=== PATIENT | male | born 1940 | race Caucasian/White ===

== ENCOUNTER 2018-06-14 15:07 | Inpatient (IN) | payer MEDICARE ==
[2018-06-14 16:25] LABS: BASO % 0.2 % (0.0-1.0); EOS % 0.1 % (0.0-3.0); HEMATOCRIT 40.2 % (42.0-52.0); HEMOGLOBIN 13.2 g/dl (13.5-17.5); IMMATURE GRANULOCYTE % 0.8 % (0-3.0); LYMPH # 0.8 10^3/uL (1.5-4.5); LYMPH % 4.9 % (24.0-44.0); MEAN CORPUSCULAR HGB CONC 32.8 g/dl (32.0-36.5); MEAN CORPUSCULAR VOLUME 91.4 fl (80.0-96.0); MONO # 0.8 10^3/uL (0.0-0.8); MONO % 4.7 % (0.0-5.0); NEUTROPHILS # 15.3 10^3/uL (1.8-7.7); NEUTROPHILS % 89.3 % (36.0-66.0); PLATELET COUNT, AUTOMATED 253 10^3/uL (150-450); RED CELL DISTRIBUTION WIDTH 13.3 % (11.5-14.5); WHITE BLOOD COUNT 17.1 10^3/uL (4.0-10.0)
[2018-06-14 16:36] LABS: INR 1.19; PARTIAL THROMBOPLASTIN TIME 28.4 SECONDS (25.4-37.6); PROTHROMBIN TIME 15.3 SECONDS (12.1-14.4)
[2018-06-14 16:44] LABS: ANION GAP 9 MEQ/L (8-16); BLOOD UREA NITROGEN 32 MG/DL (7-18); CARBON DIOXIDE LEVEL 27 MEQ/L (21-32); CHLORIDE LEVEL 104 MEQ/L (98-107); CREATININE FOR GFR 1.05 MG/DL (0.70-1.30); GLOMERULAR FILTRATION RATE > 60.0 (>42); GLUCOSE, FASTING 101 MG/DL (70-100); SODIUM LEVEL 140 MEQ/L (136-145)
[2018-06-14] MEDS: NS 1,000 ML IV (16:50)
[2018-06-14] MEDS: MORPHINE 4 MG/ML 1ML VIAL/SYRINGE (J2270) IV ×2 (16:50→20:10)
[2018-06-14] MEDS: ADACEL/BOOSTRIX VACCINE (DIPHTH/PERTUSS/ACELL/TETANUS)0.5ML SYR (90715) IM (17:05)
[2018-06-14 17:46] LABS: APPEARANCE, URINE CLEAR (CLEAR); BACTERIA, URINE AUTO NEGATIVE (NEGATIVE); BILIRUBIN, URINE AUTO NEGATIVE (NEGATIVE); BLOOD, URINE BLOOD NEGATIVE (NEGATIVE); COLOR, URINE YELLOW (YELLOW); GLUCOSE, URINE (UA) AUTO NEGATIVE (NEGATIVE); KETONE, URINE AUTO NEGATIVE (NEGATIVE); LEUKOCYTE ESTERASE, URINE AUTO NEGATIVE (NEGATIVE); MUCUS, URINE SMALL (NEGATIVE); NITRITE, URINE AUTO NEGATIVE (NEGATIVE); PROTEIN, URINE AUTO NEGATIVE (NEGATIVE); RBC, URINE AUTO 3 /HPF (0-3); SPECIFIC GRAVITY URINE AUTO 1.025 (1.002-1.035); SQUAMOUS EPITHELIAL CELL UR AU 0 /HPF (0-6); UROBILINOGEN, URINE AUTO 0.2 mg/dL (0.0-2.0); WBC, URINE AUTO 1 /HPF (0-3)
[2018-06-14] MEDS: amLODIPine 5 MG TAB PO (18:30)
[2018-06-14] MEDS: hydrALAZINE INJ 20 MG/ML VIAL IV ×2 (19:00→19:34)
[2018-06-14] MEDS ORDERED: MORPHINE 4 MG/ML 1ML VIAL/SYRINGE (J2270) As Ordered (20:07)
[2018-06-14] MEDS: NITROGLYCERIN 0.4 MG SUBL TABLET SL (20:08)
[2018-06-14] MEDS ORDERED: MORPHINE 4 MG/ML 1ML VIAL/SYRINGE (J2270) IV (20:15)
[2018-06-14] MEDS ORDERED: ASPIRIN 81 MG CHEW TABLET As Ordered (20:19)
[2018-06-14] MEDS: ASPIRIN 325 MG TAB PO (20:20)
[2018-06-14] MEDS: ceFAZolin 1GM INJ (J0690 PER 500MG) As Ordered (20:34)
[2018-06-14] MEDS: METOPROLOL TART 25 MG TABLET PO (21:00)
[2018-06-14 21:33] LABS: BASO % 0.1 % (0.0-1.0); EOS % 0.1 % (0.0-3.0); HEMATOCRIT 38.4 % (42.0-52.0); HEMOGLOBIN 12.5 g/dl (13.5-17.5); IMMATURE GRANULOCYTE % 0.4 % (0-3.0); LYMPH # 1.1 10^3/uL (1.5-4.5); LYMPH % 7.3 % (24.0-44.0); MEAN CORPUSCULAR HEMOGLOBIN 29.7 pg (27.0-33.0); MEAN CORPUSCULAR HGB CONC 32.6 g/dl (32.0-36.5); MEAN CORPUSCULAR VOLUME 91.2 fl (80.0-96.0); MONO # 1.1 10^3/uL (0.0-0.8); MONO % 7.3 % (0.0-5.0); NEUTROPHILS # 12.1 10^3/uL (1.8-7.7); NEUTROPHILS % 84.8 % (36.0-66.0); PLATELET COUNT, AUTOMATED 237 10^3/uL (150-450); RED BLOOD COUNT 4.21 10^6/uL (4.30-6.10); RED CELL DISTRIBUTION WIDTH 13.4 % (11.5-14.5); WHITE BLOOD COUNT 14.3 10^3/uL (4.0-10.0)
[2018-06-14 22:00] LABS: ANION GAP 8 MEQ/L (8-16); BLOOD UREA NITROGEN 30 MG/DL (7-18); CALCIUM LEVEL 8.7 MG/DL (8.8-10.2); CARBON DIOXIDE LEVEL 25 MEQ/L (21-32); CHLORIDE LEVEL 106 MEQ/L (98-107); CPK CREATINE PHOSPHOKINASE 70 U/L (39-308); CREATININE FOR GFR 1.09 MG/DL (0.70-1.30); GLOMERULAR FILTRATION RATE > 60.0 (>42); GLUCOSE, FASTING 104 MG/DL (70-100); MAGNESIUM LEVEL 2.4 MG/DL (1.8-2.4); MB/CK RELATIVE INDEX 2.86 (< OR =4); SODIUM LEVEL 139 MEQ/L (136-145); TROPONIN I < 0.02 NG/ML (< 0.10)
[2018-06-15] MEDS: D5W/0.45% SODIUM CHLORIDE 1,000 ML IV (00:55)
[2018-06-15] MEDS: ATORVASTATIN 20 MG TAB PO ×2 (00:56→22:05)
[2018-06-15] MEDS: ENOXAPARIN 100MG/1ML SYRINGE (J1650) SC ×2 (01:11→12:18)
[2018-06-15 03:00] LABS: CPK CREATINE PHOSPHOKINASE 57 U/L (39-308); MB/CK RELATIVE INDEX 2.63 (< OR =4)
[2018-06-15 04:28] LABS: TROPONIN I 0.05 NG/ML (< 0.10)
[2018-06-15 05:29] LABS: HEMATOCRIT 35.2 % (42.0-52.0); HEMOGLOBIN 11.5 g/dl (13.5-17.5); MEAN CORPUSCULAR HEMOGLOBIN 29.5 pg (27.0-33.0); MEAN CORPUSCULAR HGB CONC 32.7 g/dl (32.0-36.5); MEAN CORPUSCULAR VOLUME 90.3 fl (80.0-96.0); PLATELET COUNT, AUTOMATED 229 10^3/uL (150-450); RED CELL DISTRIBUTION WIDTH 13.7 % (11.5-14.5); WHITE BLOOD COUNT 10.8 10^3/uL (4.0-10.0)
[2018-06-15 05:46] LABS: ANION GAP 8 MEQ/L (8-16); BLOOD UREA NITROGEN 33 MG/DL (7-18); CALCIUM LEVEL 8.4 MG/DL (8.8-10.2); CARBON DIOXIDE LEVEL 26 MEQ/L (21-32); CHLORIDE LEVEL 105 MEQ/L (98-107); CREATININE FOR GFR 1.04 MG/DL (0.70-1.30); GLOMERULAR FILTRATION RATE > 60.0 (>42); GLUCOSE, FASTING 110 MG/DL (70-100); MAGNESIUM LEVEL 2.5 MG/DL (1.8-2.4); POTASSIUM SERUM 3.9 MEQ/L (3.5-5.1); SODIUM LEVEL 139 MEQ/L (136-145)
[2018-06-15 07:15] LABS: TROPONIN I 0.08 NG/ML (< 0.10)
[2018-06-15] MEDS: METOPROLOL TART 25 MG TABLET PO ×2 (09:28→22:06)
[2018-06-15] MEDS: PANTOPRAZOLE 40MG TAB (PROTONIX) PO (12:20)
[2018-06-15] MEDS: ASPIRIN 325 MG TAB PO (12:21)
[2018-06-15] MEDS: PERCOCET 5MG/325MG TAB PO ×3 (13:31→22:06)
[2018-06-15 18:31] LABS: TROPONIN I 0.07 NG/ML (< 0.10)
[2018-06-16] MEDS: ENOXAPARIN 100MG/1ML SYRINGE (J1650) SC (00:26)
[2018-06-16 00:53] LABS: TROPONIN I 0.05 NG/ML (< 0.10)
[2018-06-16] MEDS: PERCOCET 5MG/325MG TAB PO ×2 (04:12→08:45)
[2018-06-16 05:38] LABS: HEMATOCRIT 35.5 % (42.0-52.0); HEMOGLOBIN 11.4 g/dl (13.5-17.5); MEAN CORPUSCULAR HEMOGLOBIN 29.5 pg (27.0-33.0); MEAN CORPUSCULAR HGB CONC 32.1 g/dl (32.0-36.5); MEAN CORPUSCULAR VOLUME 91.7 fl (80.0-96.0); PLATELET COUNT, AUTOMATED 202 10^3/uL (150-450); RED BLOOD COUNT 3.87 10^6/uL (4.30-6.10)
[2018-06-16 06:04] LABS: ANION GAP 4 MEQ/L (8-16); BLOOD UREA NITROGEN 29 MG/DL (7-18); CALCIUM LEVEL 8.1 MG/DL (8.8-10.2); CARBON DIOXIDE LEVEL 29 MEQ/L (21-32); CHLORIDE LEVEL 104 MEQ/L (98-107); GLOMERULAR FILTRATION RATE > 60.0 (>42); GLUCOSE, FASTING 97 MG/DL (70-100); MAGNESIUM LEVEL 2.1 MG/DL (1.8-2.4); POTASSIUM SERUM 4.2 MEQ/L (3.5-5.1); SODIUM LEVEL 137 MEQ/L (136-145); TROPONIN I 0.04 NG/ML (< 0.10)
[2018-06-16] MEDS: PRAMIPEXOLE 0.25 MG TAB PO (08:44)
[2018-06-16] MEDS: ASPIRIN 325 MG TAB PO (08:44)
[2018-06-16] MEDS: METOPROLOL TART 25 MG TABLET PO (08:45)
[2018-06-16] MEDS: PANTOPRAZOLE 40MG TAB (PROTONIX) PO (08:45)
== END 2018-06-16 09:10 | disposition short-term general hospital (02) | DRG 536 ==
LOC: M ED 15:07 → M ED INP 18:36 → M PCU 23:32
DX: S72.141A Displaced intertrochanteric fracture of right femur, initial encounter for closed fracture (principal); I20.0 Unstable angina; W18.43XA Slipping, tripping and stumbling without falling due to stepping from one level to another, initial encounter; Y92.480 Sidewalk as the place of occurrence of the external cause; I10 Essential (primary) hypertension; G20 Parkinson's disease; K57.90 Diverticulosis of intestine, part unspecified, without perforation or abscess without bleeding; N40.0 Benign prostatic hyperplasia without lower urinary tract symptoms; Z79.899 Other long term (current) drug therapy

== ENCOUNTER → 2018-06-14 | Outpatient (CLI) | payer MEDICARE | LOC: M WUC 14:11 | DX: S70.01XA Contusion of right hip, initial encounter (principal); S72.145A Nondisplaced intertrochanteric fracture of left femur, initial encounter for closed fracture; X58.XXXA Exposure to other specified factors, initial encounter; Y92.9 Unspecified place or not applicable ==

== ENCOUNTER → 2018-06-26 | Outpatient (REF) ==
[2018-06-26 10:24] LABS: HEMATOCRIT 31.9 % (42.0-52.0); HEMOGLOBIN 10.7 g/dl (13.5-17.5); MEAN CORPUSCULAR HEMOGLOBIN 30.4 pg (27.0-33.0); MEAN CORPUSCULAR HGB CONC 33.5 g/dl (32.0-36.5); MEAN CORPUSCULAR VOLUME 90.6 fl (80.0-96.0); PLATELET COUNT, AUTOMATED 417 10^3/uL (150-450); RED BLOOD COUNT 3.52 10^6/uL (4.30-6.10); RED CELL DISTRIBUTION WIDTH 14.4 % (11.5-14.5); WHITE BLOOD COUNT 14.2 10^3/uL (4.0-10.0)
[2018-06-26 10:55] LABS: ANION GAP 8 MEQ/L (8-16); BLOOD UREA NITROGEN 19 MG/DL (7-18); CALCIUM LEVEL 9.4 MG/DL (8.8-10.2); CARBON DIOXIDE LEVEL 28 MEQ/L (21-32); CHLORIDE LEVEL 100 MEQ/L (98-107); CREATININE FOR GFR 1.06 MG/DL (0.70-1.30); GLOMERULAR FILTRATION RATE > 60.0 (>42); GLUCOSE, FASTING 91 MG/DL (70-100); POTASSIUM SERUM 4.2 MEQ/L (3.5-5.1); SODIUM LEVEL 136 MEQ/L (136-145)
== END ==
DX: Z00.00 Encounter for general adult medical examination without abnormal findings (principal); I25.2 Old myocardial infarction

== ENCOUNTER 2018-06-27 16:57 | Emergency (ER) | payer MEDICARE ==
[2018-06-27 18:37] LABS: BASO # 0.1 10^3/uL (0.0-0.2); BASO % 0.3 % (0.0-1.0); EOS # 0.3 10^3/uL (0.0-0.50); HEMATOCRIT 28.7 % (42.0-52.0); HEMOGLOBIN 9.3 g/dl (13.5-17.5); LYMPH # 1.1 10^3/uL (1.5-4.5); LYMPH % 7.7 % (24.0-44.0); MEAN CORPUSCULAR HEMOGLOBIN 30.4 pg (27.0-33.0); MEAN CORPUSCULAR HGB CONC 32.4 g/dl (32.0-36.5); MEAN CORPUSCULAR VOLUME 93.8 fl (80.0-96.0); MONO # 0.8 10^3/uL (0.0-0.8); MONO % 5.9 % (0.0-5.0); NEUTROPHILS # 11.9 10^3/uL (1.8-7.7); NEUTROPHILS % 83.1 % (36.0-66.0); PLATELET COUNT, AUTOMATED 413 10^3/uL (150-450); RED BLOOD COUNT 3.06 10^6/uL (4.30-6.10); RED CELL DISTRIBUTION WIDTH 14.6 % (11.5-14.5); WHITE BLOOD COUNT 14.3 10^3/uL (4.0-10.0)
[2018-06-27 18:49] LABS: INR 1.22; PROTHROMBIN TIME 15.6 SECONDS (12.1-14.4)
[2018-06-27 18:50] LABS: PARTIAL THROMBOPLASTIN TIME 31.1 SECONDS (25.4-37.6)
[2018-06-27 19:06] LABS: ALBUMIN/GLOBULIN RATIO 1.03 (1.00-1.93); ALKALINE PHOSPHATASE 119 U/L (45-117); ALT/SGPT 36 U/L (12-78); ANION GAP 9 MEQ/L (8-16); AST/SGOT 34 U/L (7-37); BILIRUBIN,DIRECT 0.2 MG/DL (0.0-0.2); BILIRUBIN,TOTAL 0.5 MG/DL (0.2-1.0); BLOOD UREA NITROGEN 27 MG/DL (7-18); CALCIUM LEVEL 8.5 MG/DL (8.8-10.2); CARBON DIOXIDE LEVEL 28 MEQ/L (21-32); CHLORIDE LEVEL 101 MEQ/L (98-107); CPK CREATINE PHOSPHOKINASE 67 U/L (39-308); CREATININE FOR GFR 1.04 MG/DL (0.70-1.30); GLOMERULAR FILTRATION RATE > 60.0 (>42); GLUCOSE, FASTING 94 MG/DL (70-100); MB/CK RELATIVE INDEX 3.28 (< OR =4); NT-PRO BNP 462 PG/ML (<450); POTASSIUM SERUM 4.5 MEQ/L (3.5-5.1); SODIUM LEVEL 138 MEQ/L (136-145); TOTAL PROTEIN 5.9 GM/DL (6.4-8.2); TROPONIN I 0.02 NG/ML (< 0.10)
[2018-06-27] MEDS ORDERED: ISOVUE-370 76% 100ML VIAL (Q9967) As Ordered (19:42)
== END 2018-06-27 23:01 | disposition home or self-care (01) ==
LOC: M ED 16:57
DX: R55 Syncope and collapse (principal); R06.02 Shortness of breath; I10 Essential (primary) hypertension; N40.0 Benign prostatic hyperplasia without lower urinary tract symptoms
CPT/HCPCS: Q9967

== ENCOUNTER → 2018-06-27 | Outpatient (REF) ==
[2018-06-27 12:43] LABS: HEMATOCRIT 31.7 % (42.0-52.0); HEMOGLOBIN 10.3 g/dl (13.5-17.5); MEAN CORPUSCULAR HEMOGLOBIN 30.2 pg (27.0-33.0); MEAN CORPUSCULAR HGB CONC 32.5 g/dl (32.0-36.5); PLATELET COUNT, AUTOMATED 446 10^3/uL (150-450); RED BLOOD COUNT 3.41 10^6/uL (4.30-6.10); RED CELL DISTRIBUTION WIDTH 14.5 % (11.5-14.5); WHITE BLOOD COUNT 14.3 10^3/uL (4.0-10.0)
[2018-06-27 16:07] LABS: HEMATOCRIT 29.5 % (42.0-52.0); HEMOGLOBIN 9.6 g/dl (13.5-17.5); MEAN CORPUSCULAR HEMOGLOBIN 30.6 pg (27.0-33.0); MEAN CORPUSCULAR HGB CONC 32.5 g/dl (32.0-36.5); MEAN CORPUSCULAR VOLUME 93.9 fl (80.0-96.0); PLATELET COUNT, AUTOMATED 415 10^3/uL (150-450); RED BLOOD COUNT 3.14 10^6/uL (4.30-6.10); RED CELL DISTRIBUTION WIDTH 14.5 % (11.5-14.5); WHITE BLOOD COUNT 13.6 10^3/uL (4.0-10.0)
[2018-06-27 16:30] LABS: ALBUMIN/GLOBULIN RATIO 0.94 (1.00-1.93); ALKALINE PHOSPHATASE 127 U/L (45-117); ALT/SGPT 35 U/L (12-78); ANION GAP 8 MEQ/L (8-16); AST/SGOT 35 U/L (7-37); BILIRUBIN,TOTAL 0.5 MG/DL (0.2-1.0); BLOOD UREA NITROGEN 28 MG/DL (7-18); CALCIUM LEVEL 8.6 MG/DL (8.8-10.2); CARBON DIOXIDE LEVEL 29 MEQ/L (21-32); CHLORIDE LEVEL 100 MEQ/L (98-107); CPK CREATINE PHOSPHOKINASE 73 U/L (39-308); CREATININE FOR GFR 1.21 MG/DL (0.70-1.30); GLOMERULAR FILTRATION RATE > 60.0 (>42); GLUCOSE, FASTING 157 MG/DL (70-100); POTASSIUM SERUM 4.3 MEQ/L (3.5-5.1); SODIUM LEVEL 137 MEQ/L (136-145); TOTAL PROTEIN 6.2 GM/DL (6.4-8.2)
== END ==
DX: D72.829 Elevated white blood cell count, unspecified (principal)

== ENCOUNTER 2018-07-02 17:29 | Inpatient (IN) | payer MEDICARE ==
[2018-07-02 16:46] LABS: BASO % 0.3 % (0.0-1.0); EOS # 0.2 10^3/uL (0.0-0.50); EOS % 1.4 % (0.0-3.0); IMMATURE GRANULOCYTE % 0.4 % (0-3.0); LYMPH # 1.8 10^3/uL (1.5-4.5); LYMPH % 15.3 % (24.0-44.0); MEAN CORPUSCULAR HEMOGLOBIN 30.6 pg (27.0-33.0); MEAN CORPUSCULAR HGB CONC 32.3 g/dl (32.0-36.5); MEAN CORPUSCULAR VOLUME 94.8 fl (80.0-96.0); MONO # 0.7 10^3/uL (0.0-0.8); MONO % 5.5 % (0.0-5.0); NEUTROPHILS % 77.1 % (36.0-66.0); PLATELET COUNT, AUTOMATED 501 10^3/uL (150-450); RED BLOOD COUNT 3.27 10^6/uL (4.30-6.10); RED CELL DISTRIBUTION WIDTH 14.3 % (11.5-14.5); WHITE BLOOD COUNT 11.7 10^3/uL (4.0-10.0)
[2018-07-02 17:08] LABS: ALBUMIN 3.1 GM/DL (3.2-5.2); ALBUMIN/GLOBULIN RATIO 0.69 (1.00-1.93); ALKALINE PHOSPHATASE 155 U/L (45-117); ALT/SGPT 30 U/L (12-78); ANION GAP 6 MEQ/L (8-16); AST/SGOT 18 U/L (7-37); BILIRUBIN,DIRECT 0.2 MG/DL (0.0-0.2); BILIRUBIN,TOTAL 0.6 MG/DL (0.2-1.0); BLOOD UREA NITROGEN 25 MG/DL (7-18); CALCIUM LEVEL 8.6 MG/DL (8.8-10.2); CARBON DIOXIDE LEVEL 31 MEQ/L (21-32); CHLORIDE LEVEL 103 MEQ/L (98-107); CPK CREATINE PHOSPHOKINASE 37 U/L (39-308); CREATININE FOR GFR 1.09 MG/DL (0.70-1.30); GLOMERULAR FILTRATION RATE > 60.0 (>42); GLUCOSE, FASTING 141 MG/DL (70-100); MB/CK RELATIVE INDEX 4.05 (< OR =4); SODIUM LEVEL 140 MEQ/L (136-145); TOTAL PROTEIN 7.6 GM/DL (6.4-8.2); TROPONIN I < 0.02 NG/ML (< 0.10)
[2018-07-02 17:09] LABS: INR 1.25; PARTIAL THROMBOPLASTIN TIME 31.2 SECONDS (25.4-37.6); PROTHROMBIN TIME 15.9 SECONDS (12.1-14.4)
[~2018-07-02 17:29] MED LIST: ALBUTEROL SULFATE 2.5 MG/0.5 ML INH NEB SOLN As Ordered; EPINEPHrine INJ 1 MG/ML 1ML AMP As Ordered; IPRATROPIUM 0.02% SOLN 0.5MG/2.5 ML NEB As Ordered; ONDANSETRON 4MG/2ML VIAL (J2405) As Ordered; dexameTHASONE 20 MG/5 ML VIAL (J1100) As Ordered
[2018-07-02] MEDS ORDERED: zolPIDEM TARTRATE 5 MG TAB PO (18:15)
[2018-07-02] MEDS ORDERED: NITROGLYCERIN 0.4 MG SUBL TABLET SL (18:30)
[2018-07-02 18:50] LABS: NT-PRO BNP 674 PG/ML (<450)
[2018-07-02] MEDS: ALBUTEROL SULFATE 2.5 MG/0.5 ML INH NEB SOLN INH (20:00)
[2018-07-02] MEDS ORDERED: ENOXAPARIN 40 MG/0.4 ML SYRINGE (J1650) SC (21:00)
[2018-07-02] MEDS: SENOKOT S TAB PO (21:00)
[2018-07-02] MEDS: LIDOCAINE 2% 5ML JELLY UROJET TOP (22:57)
[2018-07-02] MEDS: CIPROFLOXACIN 500 MG TAB PO (22:57)
[2018-07-02] MEDS: PRAMIPEXOLE 0.25 MG TAB PO (22:57)
[2018-07-02] MEDS: ATORVASTATIN 20 MG TAB PO (22:57)
[2018-07-03] MEDS ORDERED: FUROSEMIDE 40 MG/4 ML VIAL (J1940) IV
[2018-07-03] MEDS: ALBUTEROL SULFATE 2.5 MG/0.5 ML INH NEB SOLN INH ×5 (00:46→20:38)
[2018-07-03 02:01] LABS: BILIRUBIN, URINE MANUAL OBSCURED (NEGATIVE); BLOOD URINE MANUAL POSITIVE (NEGATIVE); GLUCOSE, URINE (UA) MANUAL NEGATIVE (NEGATIVE); KETONE, URINE MANUAL OBSCURED mg/dL (NEGATIVE); LEUKOCYTE ESTERASE, URINE MAN OBSCURED (NEGATIVE); PROTEIN, URINE MANUAL 3+ mg/dL (NEGATIVE); SPECIFIC GRAVITY,URINE MANUAL 1.005 (1.002-1.035); UROBILINOGEN, URINE MANUAL OBSCURED mg/dl (NORMAL)
[2018-07-03 02:02] LABS: APPEARANCE, URINE MANUAL CLOUDY (CLEAR); COLOR, URINE MANUAL RED (YELLOW); MICROSCOPIC EXAM PERFORMED; MICROSCOPIC INDICATED? MAN YES (NO); NITRITE, URINE MANUAL OBSCURED (NEGATIVE)
[2018-07-03 02:08] LABS: RBC, URINE TNTC /hpf (0-3)
[2018-07-03 02:09] LABS: HYALINE CAST, URINE NONE SEEN /lpf (0-1); SQUAMOUS EPITHELIAL CELL URINE NONE SEEN /hpf (SMALL AMT)
[2018-07-03 02:10] LABS: AMORPHOUS SEDIMENT, URINE SMALL AMOUNT (NEGATIVE); BACTERIA, URINE NONE SEEN
[2018-07-03] MEDS: CIPROFLOXACIN 500 MG TAB PO ×2 (05:36→18:37)
[2018-07-03 06:00] LABS: ALBUMIN 2.7 GM/DL (3.2-5.2); ANION GAP 5 MEQ/L (8-16); BLOOD UREA NITROGEN 25 MG/DL (7-18); CALCIUM LEVEL 8.4 MG/DL (8.8-10.2); CARBON DIOXIDE LEVEL 30 MEQ/L (21-32); CHLORIDE LEVEL 105 MEQ/L (98-107); CREATININE FOR GFR 0.94 MG/DL (0.70-1.30); GLOMERULAR FILTRATION RATE > 60.0 (>42); GLUCOSE, FASTING 96 MG/DL (70-100); PHOSPHORUS LEVEL 3.4 MG/DL (2.5-4.9); POTASSIUM SERUM 3.8 MEQ/L (3.5-5.1); SODIUM LEVEL 140 MEQ/L (136-145)
[2018-07-03] MEDS ORDERED: CLOPIDOGREL 75 MG TAB PO (09:00)
[2018-07-03] MEDS ORDERED: ASPIRIN 81 MG ENTERIC TAB PO (09:00)
[2018-07-03] MEDS: SENOKOT S TAB PO ×2 (09:26→20:59)
[2018-07-03] MEDS: MIRALAX *UNIT DOSE* 17GM PACKET PO (09:26)
[2018-07-03] MEDS: PRAMIPEXOLE 0.25 MG TAB PO ×3 (09:30→20:58)
[2018-07-03] MEDS: TAMSULOSIN 0.4 MG CAP PO (09:30)
[2018-07-03] MEDS: ceFAZolin 2 GM/D5W 50 ML IV BAG (J0690 PER 500MG) As Ordered (16:05)
[2018-07-03] MEDS: LIDOCAINE 1% SDV INJ 30 ML VIAL As Ordered (16:17)
[2018-07-03] MEDS ORDERED: PROPOFOL 200 MG/20 ML VIAL As Ordered (16:31)
[2018-07-03] MEDS ORDERED: ePHEDrine SULFATE 25 MG/5 ML(5MG/ML) SYRINGE As Ordered (16:31)
[2018-07-03] MEDS ORDERED: fentaNYL 100 MCG/2 ML INJECTION (J3010) As Ordered (16:31)
[2018-07-03] MEDS ORDERED: LIDOCAINE 2% INJ 100 MG/5 ML SDV (FOR ANES.) As Ordered (16:31)
[2018-07-03] MEDS ORDERED: ONDANSETRON 4MG/2ML VIAL (J2405) As Ordered (16:31)
[2018-07-03] MEDS ORDERED: MIDAZOLAM INJ 2 MG/2 ML VIAL (J2250) As Ordered (16:31)
[2018-07-03] MEDS: BACITRACIN PWD 50,000 UNITS VIAL As Ordered (16:34)
[2018-07-03] MEDS: AMIODARONE 150MG/3ML INJ (J0282) As Ordered (16:58)
[2018-07-03] MEDS: ISOVUE-300 61% 50ML VIAL (Q9967) As Ordered (16:58)
[2018-07-03] MEDS: LR 1,000 ML IV (17:45)
[2018-07-03] MEDS: FUROSEMIDE 40 MG/4 ML VIAL (J1940) IV ×2 (18:37→23:44)
[2018-07-03] MEDS: traMADol 50 MG TAB PO ×2 (19:01→20:59)
[2018-07-03] MEDS: ATORVASTATIN 20 MG TAB PO (20:59)
[2018-07-03] MEDS: ACETAMINOPHEN TAB 650MG DOSE (2X325MG) PO (23:39)
[2018-07-03] MEDS: ceFAZolin SOD 1 GM in D5W MINI-BAG PLUS 50 ML IV (23:44)
[2018-07-04] MEDS: ALBUTEROL SULFATE 2.5 MG/0.5 ML INH NEB SOLN INH ×6 (04:00→20:00)
[2018-07-04] MEDS: ACETAMINOPHEN TAB 650MG DOSE (2X325MG) PO ×4 (04:09→20:07)
[2018-07-04] MEDS: CIPROFLOXACIN 500 MG TAB PO ×2 (05:38→18:11)
[2018-07-04] MEDS: FUROSEMIDE 40 MG/4 ML VIAL (J1940) IV ×3 (05:38→18:13)
[2018-07-04 06:44] LABS: ALBUMIN 2.7 GM/DL (3.2-5.2); ANION GAP 7 MEQ/L (8-16); BLOOD UREA NITROGEN 22 MG/DL (7-18); CALCIUM LEVEL 8.3 MG/DL (8.8-10.2); CARBON DIOXIDE LEVEL 31 MEQ/L (21-32); CHLORIDE LEVEL 99 MEQ/L (98-107); CREATININE FOR GFR 1.34 MG/DL (0.70-1.30); GLUCOSE, FASTING 95 MG/DL (70-100); PHOSPHORUS LEVEL 4.6 MG/DL (2.5-4.9); POTASSIUM SERUM 3.8 MEQ/L (3.5-5.1); SODIUM LEVEL 137 MEQ/L (136-145)
[2018-07-04] MEDS: ceFAZolin SOD 1 GM in D5W MINI-BAG PLUS 50 ML IV ×2 (08:53→16:10)
[2018-07-04] MEDS: PRAMIPEXOLE 0.25 MG TAB PO ×3 (08:53→20:06)
[2018-07-04] MEDS: TAMSULOSIN 0.4 MG CAP PO (08:53)
[2018-07-04] MEDS: SENOKOT S TAB PO ×2 (09:00→20:07)
[2018-07-04] MEDS: MIRALAX *UNIT DOSE* 17GM PACKET PO (09:00)
[2018-07-04] MEDS: ATORVASTATIN 20 MG TAB PO (20:06)
[2018-07-05] MEDS: ACETAMINOPHEN TAB 650MG DOSE (2X325MG) PO ×2 (00:11→05:30)
[2018-07-05] MEDS: FUROSEMIDE 40 MG/4 ML VIAL (J1940) IV ×2 (05:31)
[2018-07-05] MEDS: CIPROFLOXACIN 500 MG TAB PO (05:31)
[2018-07-05 05:56] LABS: HEMATOCRIT 25.4 % (42.0-52.0); HEMOGLOBIN 8.4 g/dl (13.5-17.5); MEAN CORPUSCULAR HEMOGLOBIN 30.4 pg (27.0-33.0); MEAN CORPUSCULAR HGB CONC 33.1 g/dl (32.0-36.5); PLATELET COUNT, AUTOMATED 384 10^3/uL (150-450); RED BLOOD COUNT 2.76 10^6/uL (4.30-6.10); RED CELL DISTRIBUTION WIDTH 14.4 % (11.5-14.5)
[2018-07-05 06:34] LABS: ALBUMIN 2.6 GM/DL (3.2-5.2); ANION GAP 7 MEQ/L (8-16); BLOOD UREA NITROGEN 29 MG/DL (7-18); CALCIUM LEVEL 7.7 MG/DL (8.8-10.2); CARBON DIOXIDE LEVEL 33 MEQ/L (21-32); CHLORIDE LEVEL 96 MEQ/L (98-107); CREATININE FOR GFR 1.29 MG/DL (0.70-1.30); GLOMERULAR FILTRATION RATE 57.5 (>42); GLUCOSE, FASTING 99 MG/DL (70-100); PHOSPHORUS LEVEL 3.6 MG/DL (2.5-4.9); POTASSIUM SERUM 3.5 MEQ/L (3.5-5.1); SODIUM LEVEL 136 MEQ/L (136-145)
[2018-07-05] MEDS: ALBUTEROL SULFATE 2.5 MG/0.5 ML INH NEB SOLN INH ×2 (07:23)
[2018-07-05] MEDS: MIRALAX *UNIT DOSE* 17GM PACKET PO (09:25)
[2018-07-05] MEDS: CLOPIDOGREL 75 MG TAB PO (09:26)
[2018-07-05] MEDS: TAMSULOSIN 0.4 MG CAP PO (09:26)
[2018-07-05] MEDS: PRAMIPEXOLE 0.25 MG TAB PO (09:26)
[2018-07-05] MEDS: ASPIRIN 81 MG ENTERIC TAB PO (09:26)
[2018-07-05] MEDS: SENOKOT S TAB PO (09:26)
== END 2018-07-05 11:29 | DRG 242 ==
LOC: M PCU 07-03 17:55 → M ED 17:29 → M ED INP 18:13 → M ICU 21:18
PROC: 0JH605Z Insertion of Pacemaker, Single Chamber Rate Responsive into Chest Subcutaneous Tissue and Fascia, Open Approach (ICD-10-PCS; principal; 2018-07-03 15:52)
PROC: 02H63MZ Insertion of Cardiac Lead into Right Atrium, Percutaneous Approach (ICD-10-PCS; 2018-07-03 15:52)
PROC: 02HK3JZ Insertion of Pacemaker Lead into Right Ventricle, Percutaneous Approach (ICD-10-PCS; 2018-07-03 15:52)
PROC: 0TJB8ZZ Inspection of Bladder, Via Natural or Artificial Opening Endoscopic (ICD-10-PCS; 2018-07-03 15:52)
DX: I49.5 Sick sinus syndrome (principal); I50.33 Acute on chronic diastolic (congestive) heart failure; G20 Parkinson's disease; I11.0 Hypertensive heart disease with heart failure; I50.9 Heart failure, unspecified; I25.10 Atherosclerotic heart disease of native coronary artery without angina pectoris; Z95.5 Presence of coronary angioplasty implant and graft; N40.1 Benign prostatic hyperplasia with lower urinary tract symptoms; D64.9 Anemia, unspecified; I35.0 Nonrheumatic aortic (valve) stenosis; I27.20 Pulmonary hypertension, unspecified; R31.9 Hematuria, unspecified; R33.9 Retention of urine, unspecified; S72.141D Displaced intertrochanteric fracture of right femur, subsequent encounter for closed fracture with routine healing; Z79.82 Long term (current) use of aspirin; Z79.899 Other long term (current) drug therapy; Z87.891 Personal history of nicotine dependence; Z79.02 Long term (current) use of antithrombotics/antiplatelets; Z79.891 Long term (current) use of opiate analgesic; W19.XXXD Unspecified fall, subsequent encounter; Y92.9 Unspecified place or not applicable

== ENCOUNTER → 2018-07-02 | Outpatient (REF) | payer MEDICARE ==
[2018-07-02 10:33] LABS: HEMOGLOBIN 9.3 g/dl (13.5-17.5); MEAN CORPUSCULAR HEMOGLOBIN 30.4 pg (27.0-33.0); MEAN CORPUSCULAR HGB CONC 32.1 g/dl (32.0-36.5); MEAN CORPUSCULAR VOLUME 94.8 fl (80.0-96.0); PLATELET COUNT, AUTOMATED 461 10^3/uL (150-450); RED BLOOD COUNT 3.06 10^6/uL (4.30-6.10); RED CELL DISTRIBUTION WIDTH 14.4 % (11.5-14.5); WHITE BLOOD COUNT 8.2 10^3/uL (4.0-10.0)
[2018-07-02 11:14] LABS: ANION GAP 7 MEQ/L (8-16); BLOOD UREA NITROGEN 24 MG/DL (7-18); CALCIUM LEVEL 8.6 MG/DL (8.8-10.2); CARBON DIOXIDE LEVEL 30 MEQ/L (21-32); CHLORIDE LEVEL 102 MEQ/L (98-107); GLOMERULAR FILTRATION RATE > 60.0 (>42); GLUCOSE, FASTING 151 MG/DL (70-100); POTASSIUM SERUM 4.2 MEQ/L (3.5-5.1); SODIUM LEVEL 139 MEQ/L (136-145)
== END ==
DX: Z96.641 Presence of right artificial hip joint (principal); Z79.899 Other long term (current) drug therapy

== ENCOUNTER 2018-07-05 23:19 | Emergency (ER) | payer MEDICARE | END 2018-07-06 04:10 | disposition home or self-care (01) | LOC: M ED 23:19 | DX: R33.9 Retention of urine, unspecified (principal); R31.9 Hematuria, unspecified; R10.30 Lower abdominal pain, unspecified; T83.028A Displacement of other urinary catheter, initial encounter; X58.XXXA Exposure to other specified factors, initial encounter; Y92.89 Other specified places as the place of occurrence of the external cause; G20 Parkinson's disease; N40.0 Benign prostatic hyperplasia without lower urinary tract symptoms; Z95.5 Presence of coronary angioplasty implant and graft; Z79.899 Other long term (current) drug therapy; Z79.82 Long term (current) use of aspirin; Z79.02 Long term (current) use of antithrombotics/antiplatelets; Z79.891 Long term (current) use of opiate analgesic ==

== ENCOUNTER 2018-07-08 11:24 | Inpatient (IN) | payer MEDICARE ==
[2018-07-08 12:07] LABS: ABG BASE EXCESS 7.5 (-2.0-2.0); ABG HCO3 31.2 MEQ/L (22.0-26.0); ABG O2 SATURATION 98.1 % (95.0-99.0); ABG PARTIAL PRESSURE CO2 40.1 mmHg (35.0-45.0); ABG PARTIAL PRESSURE O2 106.7 mmHg (75.0-100.0); ABG STANDARD HCO3 31.3 MEQ/L (22.0-26.0); ABG TOTAL CO2 32.4 MEQ/L (23.0-31.0); ABG pH (ARTERIAL) 7.509 UNITS (7.350-7.450)
[2018-07-08 12:27] LABS: BASO % 0.1 % (0.0-1.0); EOS # 0.1 10^3/uL (0.0-0.50); EOS % 0.6 % (0.0-3.0); HEMATOCRIT 17.1 % (42.0-52.0); LYMPH # 1.3 10^3/uL (1.5-4.5); LYMPH % 11.3 % (24.0-44.0); MEAN CORPUSCULAR HEMOGLOBIN 30.5 pg (27.0-33.0); MEAN CORPUSCULAR HGB CONC 33.3 g/dl (32.0-36.5); MEAN CORPUSCULAR VOLUME 91.4 fl (80.0-96.0); MONO # 1.1 10^3/uL (0.0-0.8); MONO % 9.8 % (0.0-5.0); NEUTROPHILS # 8.6 10^3/uL (1.8-7.7); NEUTROPHILS % 77.2 % (36.0-66.0); PLATELET COUNT, AUTOMATED 334 10^3/uL (150-450); RED BLOOD COUNT 1.87 10^6/uL (4.30-6.10); RED CELL DISTRIBUTION WIDTH 14.4 % (11.5-14.5); WHITE BLOOD COUNT 11.1 10^3/uL (4.0-10.0)
[2018-07-08 12:34] LABS: HEMOGLOBIN 5.7 g/dl (13.5-17.5)
[2018-07-08 12:38] LABS: INR 1.27
[2018-07-08 12:58] LABS: ALBUMIN 2.9 GM/DL (3.2-5.2); ALBUMIN/GLOBULIN RATIO 0.83 (1.00-1.93); ALKALINE PHOSPHATASE 122 U/L (45-117); ALT/SGPT 12 U/L (12-78); ANION GAP 9 MEQ/L (8-16); AST/SGOT 10 U/L (7-37); BILIRUBIN,DIRECT 0.2 MG/DL (0.0-0.2); BILIRUBIN,TOTAL 0.6 MG/DL (0.2-1.0); BLOOD UREA NITROGEN 66 MG/DL (7-18); CALCIUM LEVEL 7.8 MG/DL (8.8-10.2); CARBON DIOXIDE LEVEL 32 MEQ/L (21-32); CHLORIDE LEVEL 92 MEQ/L (98-107); CPK CREATINE PHOSPHOKINASE 27 U/L (39-308); CREATININE FOR GFR 1.39 MG/DL (0.70-1.30); GLOMERULAR FILTRATION RATE 52.7 (>42); GLUCOSE, FASTING 109 MG/DL (70-100); MB/CK RELATIVE INDEX 4.07 (< OR =4); POTASSIUM SERUM 3.8 MEQ/L (3.5-5.1); SODIUM LEVEL 133 MEQ/L (136-145); TOTAL PROTEIN 6.4 GM/DL (6.4-8.2)
[2018-07-08 12:58] LABS: LACTIC ACID SEPSIS PROTOCOL 1.4 MMOL/L (0.4-2.0)
[2018-07-08] MEDS ORDERED: ISOVUE-370 76% 100ML VIAL (Q9967) As Ordered (13:14)
[2018-07-08] MEDS ORDERED: NITROGLYCERIN 0.4 MG SUBL TABLET SL (15:15)
[2018-07-08] MEDS ORDERED: BISACODYL 10 MG SUPP PR (15:15)
[2018-07-08 15:41] LABS: APPEARANCE, URINE MANUAL TURBID (CLEAR); COLOR, URINE MANUAL RED (YELLOW); PH,URINE MAN OBSCURED UNITS (5.0 - 7.0)
[2018-07-08 15:42] LABS: BILIRUBIN, URINE MANUAL OBSCURED (NEGATIVE); BLOOD URINE MANUAL OBSCURED (NEGATIVE); GLUCOSE, URINE (UA) MANUAL OBSCURED mg/dL (NEGATIVE); KETONE, URINE MANUAL OBSCURED mg/dL (NEGATIVE); LEUKOCYTE ESTERASE, URINE MAN OBSCURED (NEGATIVE); MICROSCOPIC INDICATED? MAN YES (NO); NITRITE, URINE MANUAL OBSCURED (NEGATIVE); PROTEIN, URINE MANUAL OBSCURED mg/dL (NEGATIVE); UROBILINOGEN, URINE MANUAL OBSCURED mg/dl (NORMAL)
[2018-07-08 15:48] LABS: RBC, URINE TNTC /hpf (0-3); SQUAMOUS EPITHELIAL CELL URINE NONE SEEN /hpf (SMALL AMT); WBC, URINE TNTC /hpf (0-3)
[2018-07-08 15:49] LABS: BACTERIA, URINE MOD AMOUNT; HYALINE CAST, URINE NONE SEEN /lpf (0-1); MICROSCOPIC EXAM PERFORMED
[2018-07-08 17:26] LABS: CPK CREATINE PHOSPHOKINASE 35 U/L (39-308); MB/CK RELATIVE INDEX 5.14 (< OR =4); TROPONIN I 0.32 NG/ML (< 0.10)
[2018-07-08] MEDS: FERROUS GLUCONATE 324 MG TAB PO ×2 (17:54→20:10)
[2018-07-08] MEDS: CIPROFLOXACIN 500 MG TAB PO (17:54)
[2018-07-08] MEDS: PRAMIPEXOLE 0.25 MG TAB PO ×2 (17:54→20:09)
[2018-07-08 18:04] LABS: HEMATOCRIT 19.8 % (42.0-52.0)
[2018-07-08 18:17] LABS: HEMOGLOBIN 6.7 g/dl (13.5-17.5)
[2018-07-08] MEDS: NS 1,000 ML IV (19:00)
[2018-07-08] MEDS: TAMSULOSIN 0.4 MG CAP PO (20:09)
[2018-07-08] MEDS: ATORVASTATIN 20 MG TAB PO (20:09)
[2018-07-08] MEDS: SENOKOT S TAB PO (20:09)
[2018-07-08] MEDS: CLOPIDOGREL 75 MG TAB PO (20:10)
[2018-07-08] MEDS: ACETAMINOPHEN TAB 650MG DOSE (2X325MG) PO (23:19)
[2018-07-09 00:46] LABS: HEMATOCRIT 22.6 % (42.0-52.0); HEMOGLOBIN 7.6 g/dl (13.5-17.5)
[2018-07-09 01:39] LABS: CPK CREATINE PHOSPHOKINASE 37 U/L (39-308); MB/CK RELATIVE INDEX 5.41 (< OR =4); TROPONIN I 0.43 NG/ML (< 0.10)
[2018-07-09] MEDS: CIPROFLOXACIN 500 MG TAB PO ×2 (05:12→17:08)
[2018-07-09 06:14] LABS: HEMATOCRIT 24.6 % (42.0-52.0); HEMOGLOBIN 8.2 g/dl (13.5-17.5)
[2018-07-09 06:40] LABS: CPK CREATINE PHOSPHOKINASE 36 U/L (39-308); MB/CK RELATIVE INDEX 4.17 (< OR =4); TROPONIN I 0.35 NG/ML (< 0.10)
[2018-07-09 07:45] LABS: IMMEDIATE SPIN CROSSMATCH 1 4
[2018-07-09] MEDS: FERROUS GLUCONATE 324 MG TAB PO ×3 (08:10→20:21)
[2018-07-09] MEDS: PRAMIPEXOLE 0.25 MG TAB PO ×3 (08:11→20:21)
[2018-07-09] MEDS: VITAMIN D 1,000 INTERNATIONAL UNITS TABLET PO (08:11)
[2018-07-09] MEDS: SENOKOT S TAB PO ×2 (08:11→20:21)
[2018-07-09] MEDS ORDERED: SLF 3 ML SYR IV (10:30)
[2018-07-09 11:21] LABS: HEMATOCRIT 26.7 % (42.0-52.0); HEMOGLOBIN 9.1 g/dl (13.5-17.5)
[2018-07-09] MEDS: SLF 3 ML SYR IV ×2 (13:18→21:01)
[2018-07-09 19:12] LABS: HEMATOCRIT 27.2 % (42.0-52.0); HEMOGLOBIN 9.3 g/dl (13.5-17.5)
[2018-07-09] MEDS: MOM 30ML SUSPENSION UDC PO (20:21)
[2018-07-09] MEDS: ATORVASTATIN 20 MG TAB PO (20:21)
[2018-07-09] MEDS: TAMSULOSIN 0.4 MG CAP PO (20:21)
[2018-07-09] MEDS: CLOPIDOGREL 75 MG TAB PO (20:21)
[2018-07-10] MEDS: ACETAMINOPHEN TAB 650MG DOSE (2X325MG) PO (02:04)
[2018-07-10 04:57] LABS: HEMOGLOBIN 9.4 g/dl (13.5-17.5); MEAN CORPUSCULAR HEMOGLOBIN 30.6 pg (27.0-33.0); MEAN CORPUSCULAR HGB CONC 34.8 g/dl (32.0-36.5); MEAN CORPUSCULAR VOLUME 87.9 fl (80.0-96.0); PLATELET COUNT, AUTOMATED 271 10^3/uL (150-450); RED BLOOD COUNT 3.07 10^6/uL (4.30-6.10); RED CELL DISTRIBUTION WIDTH 15.6 % (11.5-14.5); WHITE BLOOD COUNT 9.4 10^3/uL (4.0-10.0)
[2018-07-10 05:25] LABS: ANION GAP 8 MEQ/L (8-16); BLOOD UREA NITROGEN 45 MG/DL (7-18); CALCIUM LEVEL 7.9 MG/DL (8.8-10.2); CARBON DIOXIDE LEVEL 29 MEQ/L (21-32); CHLORIDE LEVEL 100 MEQ/L (98-107); GLOMERULAR FILTRATION RATE > 60.0 (>42); GLUCOSE, FASTING 90 MG/DL (70-100); POTASSIUM SERUM 3.6 MEQ/L (3.5-5.1); SODIUM LEVEL 137 MEQ/L (136-145)
[2018-07-10] MEDS: SLF 3 ML SYR IV ×3 (05:52→21:23)
[2018-07-10] MEDS: CIPROFLOXACIN 500 MG TAB PO ×2 (05:52→16:58)
[2018-07-10] MEDS: VITAMIN D 1,000 INTERNATIONAL UNITS TABLET PO (08:11)
[2018-07-10] MEDS: FERROUS GLUCONATE 324 MG TAB PO ×3 (08:11→21:21)
[2018-07-10] MEDS: PRAMIPEXOLE 0.25 MG TAB PO ×3 (08:11→21:22)
[2018-07-10] MEDS: SENOKOT S TAB PO ×2 (08:11→21:21)
[2018-07-10 19:04] LABS: HEMATOCRIT 30.1 % (42.0-52.0); HEMOGLOBIN 10.2 g/dl (13.5-17.5)
[2018-07-10] MEDS: TAMSULOSIN 0.4 MG CAP PO (21:21)
[2018-07-10] MEDS: CLOPIDOGREL 75 MG TAB PO (21:21)
[2018-07-10] MEDS: ATORVASTATIN 20 MG TAB PO (21:22)
[2018-07-11 05:52] LABS: HEMATOCRIT 27.2 % (42.0-52.0); HEMOGLOBIN 9.1 g/dl (13.5-17.5); MEAN CORPUSCULAR HGB CONC 33.5 g/dl (32.0-36.5); MEAN CORPUSCULAR VOLUME 89.8 fl (80.0-96.0); PLATELET COUNT, AUTOMATED 276 10^3/uL (150-450); RED BLOOD COUNT 3.03 10^6/uL (4.30-6.10); RED CELL DISTRIBUTION WIDTH 15.4 % (11.5-14.5); WHITE BLOOD COUNT 10.3 10^3/uL (4.0-10.0)
[2018-07-11] MEDS: SLF 3 ML SYR IV ×3 (06:00→22:00)
[2018-07-11] MEDS: CIPROFLOXACIN 500 MG TAB PO ×2 (06:14→17:44)
[2018-07-11 06:19] LABS: ANION GAP 9 MEQ/L (8-16); BLOOD UREA NITROGEN 43 MG/DL (7-18); CALCIUM LEVEL 7.6 MG/DL (8.8-10.2); CARBON DIOXIDE LEVEL 27 MEQ/L (21-32); CHLORIDE LEVEL 103 MEQ/L (98-107); CREATININE FOR GFR 0.88 MG/DL (0.70-1.30); GLOMERULAR FILTRATION RATE > 60.0 (>42); GLUCOSE, FASTING 90 MG/DL (70-100); POTASSIUM SERUM 3.3 MEQ/L (3.5-5.1); SODIUM LEVEL 139 MEQ/L (136-145)
[2018-07-11] MEDS: FERROUS GLUCONATE 324 MG TAB PO ×3 (08:39→21:49)
[2018-07-11] MEDS: PRAMIPEXOLE 0.25 MG TAB PO ×3 (08:39→21:50)
[2018-07-11] MEDS: VITAMIN D 1,000 INTERNATIONAL UNITS TABLET PO (08:39)
[2018-07-11] MEDS: SENOKOT S TAB PO ×2 (08:39→21:50)
[2018-07-11] MEDS: POTASSIUM CHLORIDE 10 MEQ SR TABLET PO (11:45)
[2018-07-11 11:58] LABS: MAGNESIUM LEVEL 2.5 MG/DL (1.8-2.4)
[2018-07-11] MEDS: METOPROLOL SUCC *XL* 25MG TAB (TopROL *XL*) PO ×2 (15:14→21:00)
[2018-07-11 19:09] LABS: HEMATOCRIT 30.7 % (42.0-52.0); HEMOGLOBIN 10.1 g/dl (13.5-17.5)
[2018-07-11] MEDS: ATORVASTATIN 20 MG TAB PO (21:49)
[2018-07-11] MEDS: TAMSULOSIN 0.4 MG CAP PO (21:49)
[2018-07-11] MEDS: CLOPIDOGREL 75 MG TAB PO (21:50)
[2018-07-12] MEDS: CIPROFLOXACIN 500 MG TAB PO ×2 (05:54→16:52)
[2018-07-12] MEDS: SLF 3 ML SYR IV ×3 (05:55→20:23)
[2018-07-12 05:59] LABS: HEMATOCRIT 26.7 % (42.0-52.0); HEMOGLOBIN 8.8 g/dl (13.5-17.5); MEAN CORPUSCULAR VOLUME 91.1 fl (80.0-96.0); PLATELET COUNT, AUTOMATED 271 10^3/uL (150-450); RED BLOOD COUNT 2.93 10^6/uL (4.30-6.10); RED CELL DISTRIBUTION WIDTH 15.7 % (11.5-14.5); WHITE BLOOD COUNT 10.1 10^3/uL (4.0-10.0)
[2018-07-12 06:37] LABS: ANION GAP 7 MEQ/L (8-16); BLOOD UREA NITROGEN 38 MG/DL (7-18); CALCIUM LEVEL 8.2 MG/DL (8.8-10.2); CARBON DIOXIDE LEVEL 27 MEQ/L (21-32); CHLORIDE LEVEL 109 MEQ/L (98-107); CREATININE FOR GFR 0.83 MG/DL (0.70-1.30); GLOMERULAR FILTRATION RATE > 60.0 (>42); GLUCOSE, FASTING 94 MG/DL (70-100); POTASSIUM SERUM 3.8 MEQ/L (3.5-5.1); SODIUM LEVEL 143 MEQ/L (136-145)
[2018-07-12] MEDS: METOPROLOL SUCC *XL* 25MG TAB (TopROL *XL*) PO (08:48)
[2018-07-12] MEDS: FERROUS GLUCONATE 324 MG TAB PO ×3 (08:53→20:21)
[2018-07-12] MEDS: SENOKOT S TAB PO ×2 (08:53→20:21)
[2018-07-12] MEDS: PRAMIPEXOLE 0.25 MG TAB PO ×3 (08:53→23:37)
[2018-07-12] MEDS: VITAMIN D 1,000 INTERNATIONAL UNITS TABLET PO (08:53)
[2018-07-12] MEDS: POTASSIUM CHLORIDE 10 MEQ SR TABLET PO (12:21)
[2018-07-12 19:39] LABS: HEMATOCRIT 29.8 % (42.0-52.0); HEMOGLOBIN 9.6 g/dl (13.5-17.5)
[2018-07-12] MEDS: METOPROLOL SUCC *XL* 12.5MG PER 1/2 TAB (TopROL *XL*) PO (20:21)
[2018-07-12] MEDS: CLOPIDOGREL 75 MG TAB PO (20:21)
[2018-07-12] MEDS: TAMSULOSIN 0.4 MG CAP PO (20:21)
[2018-07-12] MEDS: ATORVASTATIN 20 MG TAB PO (20:21)
[2018-07-12] MEDS: ACETAMINOPHEN TAB 650MG DOSE (2X325MG) PO (23:37)
[2018-07-13] MEDS: CIPROFLOXACIN 500 MG TAB PO ×2 (05:36→18:01)
[2018-07-13] MEDS: SLF 3 ML SYR IV ×3 (05:37→22:38)
[2018-07-13 06:32] LABS: HEMOGLOBIN 8.6 g/dl (13.5-17.5); MEAN CORPUSCULAR HEMOGLOBIN 30.4 pg (27.0-33.0); MEAN CORPUSCULAR HGB CONC 33.1 g/dl (32.0-36.5); MEAN CORPUSCULAR VOLUME 91.9 fl (80.0-96.0); PLATELET COUNT, AUTOMATED 280 10^3/uL (150-450); RED BLOOD COUNT 2.83 10^6/uL (4.30-6.10); RED CELL DISTRIBUTION WIDTH 15.7 % (11.5-14.5); WHITE BLOOD COUNT 9.9 10^3/uL (4.0-10.0)
[2018-07-13 07:01] LABS: ANION GAP 7 MEQ/L (8-16); BLOOD UREA NITROGEN 33 MG/DL (7-18); CALCIUM LEVEL 7.8 MG/DL (8.8-10.2); CARBON DIOXIDE LEVEL 26 MEQ/L (21-32); CHLORIDE LEVEL 109 MEQ/L (98-107); CREATININE FOR GFR 0.82 MG/DL (0.70-1.30); GLOMERULAR FILTRATION RATE > 60.0 (>42); GLUCOSE, FASTING 101 MG/DL (70-100); POTASSIUM SERUM 3.9 MEQ/L (3.5-5.1); SODIUM LEVEL 142 MEQ/L (136-145)
[2018-07-13] MEDS: FERROUS GLUCONATE 324 MG TAB PO ×3 (08:24→20:11)
[2018-07-13] MEDS: VITAMIN D 1,000 INTERNATIONAL UNITS TABLET PO (08:27)
[2018-07-13] MEDS: PRAMIPEXOLE 0.25 MG TAB PO ×3 (08:27→20:11)
[2018-07-13] MEDS: METOPROLOL SUCC *XL* 12.5MG PER 1/2 TAB (TopROL *XL*) PO ×2 (08:27→20:11)
[2018-07-13] MEDS: SENOKOT S TAB PO ×2 (08:27→20:11)
[2018-07-13] MEDS: FUROSEMIDE 40 MG/4 ML VIAL (J1940) IV (13:17)
[2018-07-13] MEDS: TAMSULOSIN 0.4 MG CAP PO (20:11)
[2018-07-13] MEDS: ATORVASTATIN 20 MG TAB PO (20:11)
[2018-07-13] MEDS: CLOPIDOGREL 75 MG TAB PO (20:11)
[2018-07-14] MEDS: CIPROFLOXACIN 500 MG TAB PO (05:26)
[2018-07-14] MEDS: SLF 3 ML SYR IV ×3 (05:27→21:01)
[2018-07-14 05:47] LABS: HEMATOCRIT 27.7 % (42.0-52.0); HEMOGLOBIN 9.2 g/dl (13.5-17.5); MEAN CORPUSCULAR HEMOGLOBIN 30.7 pg (27.0-33.0); MEAN CORPUSCULAR HGB CONC 33.2 g/dl (32.0-36.5); MEAN CORPUSCULAR VOLUME 92.3 fl (80.0-96.0); PLATELET COUNT, AUTOMATED 269 10^3/uL (150-450); RED CELL DISTRIBUTION WIDTH 15.8 % (11.5-14.5); WHITE BLOOD COUNT 8.6 10^3/uL (4.0-10.0)
[2018-07-14 06:20] LABS: ANION GAP 7 MEQ/L (8-16); BLOOD UREA NITROGEN 32 MG/DL (7-18); CARBON DIOXIDE LEVEL 27 MEQ/L (21-32); CHLORIDE LEVEL 107 MEQ/L (98-107); GLOMERULAR FILTRATION RATE > 60.0 (>42); GLUCOSE, FASTING 89 MG/DL (70-100); NT-PRO BNP 421 PG/ML (<450); POTASSIUM SERUM 3.7 MEQ/L (3.5-5.1); SODIUM LEVEL 141 MEQ/L (136-145); TROPONIN I 0.02 NG/ML (< 0.10)
[2018-07-14] MEDS: METOPROLOL SUCC *XL* 12.5MG PER 1/2 TAB (TopROL *XL*) PO ×2 (09:00→21:00)
[2018-07-14] MEDS: PRAMIPEXOLE 0.25 MG TAB PO ×3 (09:47→21:00)
[2018-07-14] MEDS: FERROUS GLUCONATE 324 MG TAB PO ×3 (09:47→21:00)
[2018-07-14] MEDS: VITAMIN D 1,000 INTERNATIONAL UNITS TABLET PO (09:47)
[2018-07-14] MEDS: SENOKOT S TAB PO ×2 (09:47→21:00)
[2018-07-14] MEDS: FUROSEMIDE 40 MG/4 ML VIAL (J1940) IV (15:22)
[2018-07-14] MEDS: ATORVASTATIN 20 MG TAB PO (21:00)
[2018-07-14] MEDS: CLOPIDOGREL 75 MG TAB PO (21:00)
[2018-07-14] MEDS: TAMSULOSIN 0.4 MG CAP PO (21:00)
[2018-07-15] MEDS: SLF 3 ML SYR IV (05:55)
[2018-07-15 05:59] LABS: HEMATOCRIT 26.8 % (42.0-52.0); HEMOGLOBIN 8.8 g/dl (13.5-17.5); MEAN CORPUSCULAR HEMOGLOBIN 30.2 pg (27.0-33.0); MEAN CORPUSCULAR HGB CONC 32.8 g/dl (32.0-36.5); MEAN CORPUSCULAR VOLUME 92.1 fl (80.0-96.0); PLATELET COUNT, AUTOMATED 288 10^3/uL (150-450); RED BLOOD COUNT 2.91 10^6/uL (4.30-6.10); RED CELL DISTRIBUTION WIDTH 15.1 % (11.5-14.5); WHITE BLOOD COUNT 8.2 10^3/uL (4.0-10.0)
[2018-07-15 06:24] LABS: ANION GAP 3 MEQ/L (8-16); BLOOD UREA NITROGEN 35 MG/DL (7-18); CALCIUM LEVEL 8.3 MG/DL (8.8-10.2); CARBON DIOXIDE LEVEL 31 MEQ/L (21-32); CHLORIDE LEVEL 105 MEQ/L (98-107); GLOMERULAR FILTRATION RATE > 60.0 (>42); GLUCOSE, FASTING 118 MG/DL (70-100); POTASSIUM SERUM 3.7 MEQ/L (3.5-5.1); SODIUM LEVEL 139 MEQ/L (136-145)
[2018-07-15] MEDS: METOPROLOL SUCC *XL* 12.5MG PER 1/2 TAB (TopROL *XL*) PO (09:00)
[2018-07-15] MEDS: FERROUS GLUCONATE 324 MG TAB PO (09:38)
[2018-07-15] MEDS: PRAMIPEXOLE 0.25 MG TAB PO (09:39)
[2018-07-15] MEDS: SENOKOT S TAB PO (09:39)
[2018-07-15] MEDS: VITAMIN D 1,000 INTERNATIONAL UNITS TABLET PO (09:39)
== END 2018-07-15 11:38 | DRG 813 ==
LOC: M MSPAV 07-12 18:41 → M ED 11:24 → M ED INP 13:35 → M PCU 16:18
PROC: 30233N1 Transfusion of Nonautologous Red Blood Cells into Peripheral Vein, Percutaneous Approach (ICD-10-PCS; principal; 2018-07-08)
DX: D68.32 Hemorrhagic disorder due to extrinsic circulating anticoagulants (principal); I50.32 Chronic diastolic (congestive) heart failure; D62 Acute posthemorrhagic anemia; I47.2 Ventricular tachycardia; I27.20 Pulmonary hypertension, unspecified; I25.10 Atherosclerotic heart disease of native coronary artery without angina pectoris; G20 Parkinson's disease; I11.0 Hypertensive heart disease with heart failure; E78.00 Pure hypercholesterolemia, unspecified; N40.1 Benign prostatic hyperplasia with lower urinary tract symptoms; R31.9 Hematuria, unspecified; K59.00 Constipation, unspecified; E87.6 Hypokalemia; R33.9 Retention of urine, unspecified; Z95.0 Presence of cardiac pacemaker; Z95.1 Presence of aortocoronary bypass graft; Z79.02 Long term (current) use of antithrombotics/antiplatelets; Z79.82 Long term (current) use of aspirin; Z79.899 Other long term (current) drug therapy; Z87.891 Personal history of nicotine dependence

== ENCOUNTER → 2018-07-08 | Outpatient (REF) ==
[2018-07-08 10:01] LABS: HEMATOCRIT 17.5 % (42.0-52.0); MEAN CORPUSCULAR HEMOGLOBIN 30.9 pg (27.0-33.0); MEAN CORPUSCULAR HGB CONC 33.1 g/dl (32.0-36.5); MEAN CORPUSCULAR VOLUME 93.1 fl (80.0-96.0); PLATELET COUNT, AUTOMATED 336 10^3/uL (150-450); RED BLOOD COUNT 1.88 10^6/uL (4.30-6.10); RED CELL DISTRIBUTION WIDTH 14.6 % (11.5-14.5); WHITE BLOOD COUNT 12.8 10^3/uL (4.0-10.0)
[2018-07-08 10:06] LABS: HEMOGLOBIN 5.8 g/dl (13.5-17.5)
== END ==
DX: R31.9 Hematuria, unspecified (principal)

== ENCOUNTER → 2018-07-09 | Outpatient (REF) | DX: R31.9 Hematuria, unspecified (principal) ==

== ENCOUNTER → 2018-07-17 | Outpatient (REF) ==
[2018-07-17 08:55] LABS: HEMATOCRIT 29.6 % (42.0-52.0); HEMOGLOBIN 9.5 g/dl (13.5-17.5); MEAN CORPUSCULAR HEMOGLOBIN 29.8 pg (27.0-33.0); MEAN CORPUSCULAR HGB CONC 32.1 g/dl (32.0-36.5); MEAN CORPUSCULAR VOLUME 92.8 fl (80.0-96.0); PLATELET COUNT, AUTOMATED 311 10^3/uL (150-450); RED BLOOD COUNT 3.19 10^6/uL (4.30-6.10); RED CELL DISTRIBUTION WIDTH 14.9 % (11.5-14.5); WHITE BLOOD COUNT 7.5 10^3/uL (4.0-10.0)
[2018-07-17 09:23] LABS: ANION GAP 6 MEQ/L (8-16); BLOOD UREA NITROGEN 35 MG/DL (7-18); CALCIUM LEVEL 8.6 MG/DL (8.8-10.2); CARBON DIOXIDE LEVEL 29 MEQ/L (21-32); CHLORIDE LEVEL 106 MEQ/L (98-107); GLOMERULAR FILTRATION RATE > 60.0 (>42); GLUCOSE, FASTING 92 MG/DL (70-100); POTASSIUM SERUM 4.1 MEQ/L (3.5-5.1); SODIUM LEVEL 141 MEQ/L (136-145)
== END ==
DX: D64.9 Anemia, unspecified (principal)

== ENCOUNTER → 2018-07-18 | Outpatient (REF) | payer MEDICARE, SELFPAY ==
[2018-07-18 16:20] LABS: HEMATOCRIT 31.1 % (42.0-52.0); HEMOGLOBIN 10.2 g/dl (13.5-17.5); MEAN CORPUSCULAR HEMOGLOBIN 30.7 pg (27.0-33.0); MEAN CORPUSCULAR HGB CONC 32.8 g/dl (32.0-36.5); MEAN CORPUSCULAR VOLUME 93.7 fl (80.0-96.0); PLATELET COUNT, AUTOMATED 345 10^3/uL (150-450); RED BLOOD COUNT 3.32 10^6/uL (4.30-6.10); WHITE BLOOD COUNT 8.8 10^3/uL (4.0-10.0)
[2018-07-18 16:44] LABS: ANION GAP 8 MEQ/L (8-16); BLOOD UREA NITROGEN 32 MG/DL (7-18); CALCIUM LEVEL 8.6 MG/DL (8.8-10.2); CARBON DIOXIDE LEVEL 27 MEQ/L (21-32); CHLORIDE LEVEL 105 MEQ/L (98-107); CREATININE FOR GFR 0.87 MG/DL (0.70-1.30); GLOMERULAR FILTRATION RATE > 60.0 (>42); GLUCOSE, FASTING 137 MG/DL (70-100); POTASSIUM SERUM 3.9 MEQ/L (3.5-5.1); SODIUM LEVEL 140 MEQ/L (136-145)
== END ==
DX: D64.9 Anemia, unspecified (principal); R31.9 Hematuria, unspecified
CPT/HCPCS: 80048

== ENCOUNTER → 2018-07-24 | Outpatient (REF) ==
[2018-07-24 10:13] LABS: HEMOGLOBIN 9.6 g/dl (13.5-17.5); MEAN CORPUSCULAR HEMOGLOBIN 30.3 pg (27.0-33.0); MEAN CORPUSCULAR VOLUME 94.6 fl (80.0-96.0); PLATELET COUNT, AUTOMATED 292 10^3/uL (150-450); RED BLOOD COUNT 3.17 10^6/uL (4.30-6.10); RED CELL DISTRIBUTION WIDTH 14.9 % (11.5-14.5); WHITE BLOOD COUNT 7.3 10^3/uL (4.0-10.0)
[2018-07-24 11:04] LABS: ANION GAP 9 MEQ/L (8-16); BLOOD UREA NITROGEN 23 MG/DL (7-18); CALCIUM LEVEL 8.7 MG/DL (8.8-10.2); CARBON DIOXIDE LEVEL 27 MEQ/L (21-32); CHLORIDE LEVEL 104 MEQ/L (98-107); CREATININE FOR GFR 0.93 MG/DL (0.70-1.30); GLOMERULAR FILTRATION RATE > 60.0 (>42); GLUCOSE, FASTING 140 MG/DL (70-100); POTASSIUM SERUM 4.2 MEQ/L (3.5-5.1); SODIUM LEVEL 140 MEQ/L (136-145)
== END ==
DX: D64.9 Anemia, unspecified (principal)

== ENCOUNTER → 2018-07-25 | Outpatient (REF) | payer MEDICARE ==
[~2018-07-25] MED LIST changes: +ACE65ERTAB PO; +ACET1TAB55 PO; -ALBUTEROL SULFATE 2.5 MG/0.5 ML INH NEB SOLN As Ordered; +ASPI1TAB20 PO; +ASPI81TAEC PO; +ATOR1TAB21 PO; +ATOR40TA75 PO; +BISA10SU4 PR; +CIPR-249 PO; +CIPR1TAB20 PO; +CLOP75TA2 PO; +ENEMENE4 PR; +ENOX40IN3 SC; -EPINEPHrine INJ 1 MG/ML 1ML AMP As Ordered; +FERR32TA PO; +FLOM0.4C39 PO; -IPRATROPIUM 0.02% SOLN 0.5MG/2.5 ML NEB As Ordered; +LOSA100T8 PO; +LOVE0.8I SC; +METO1TAB32 PO; +METO1TAB87 PO; +MILK120011 PO; +MIRA3350 PO; +NITR4TASL SL; +OMEP40CA2 PO; -ONDANSETRON 4MG/2ML VIAL (J2405) As Ordered; +OXYC-517 PO; +PRAM0.5T7 PO; +SENN8.6T7 PO; +VITA100066 PO; -dexameTHASONE 20 MG/5 ML VIAL (J1100) As Ordered
[2018-07-25 21:04] LABS: HEMATOCRIT 27.8 % (42.0-52.0); MEAN CORPUSCULAR HEMOGLOBIN 30.5 pg (27.0-33.0); MEAN CORPUSCULAR HGB CONC 32.4 g/dl (32.0-36.5); MEAN CORPUSCULAR VOLUME 94.2 fl (80.0-96.0); PLATELET COUNT, AUTOMATED 292 10^3/uL (150-450); RED BLOOD COUNT 2.95 10^6/uL (4.30-6.10); WHITE BLOOD COUNT 8.4 10^3/uL (4.0-10.0)
[2018-07-25 21:12] LABS: APPEARANCE, URINE TURBID (CLEAR); BACTERIA, URINE AUTO 3+ (NEGATIVE); BILIRUBIN, URINE AUTO NEGATIVE (NEGATIVE); BLOOD, URINE BLOOD 2+ (NEGATIVE); COLOR, URINE YELLOW (YELLOW); GLUCOSE, URINE (UA) AUTO NEGATIVE (NEGATIVE); KETONE, URINE AUTO NEGATIVE (NEGATIVE); LEUKOCYTE ESTERASE, URINE AUTO 3+ (NEGATIVE); MUCUS, URINE LARGE (NEGATIVE); NITRITE, URINE AUTO NEGATIVE (NEGATIVE); PROTEIN, URINE AUTO 2+ mg/dL (NEGATIVE); RBC, URINE AUTO 62 /HPF (0-3); SPECIFIC GRAVITY URINE AUTO 1.021 (1.002-1.035); SQUAMOUS EPITHELIAL CELL UR AU 2 /HPF (0-6); UROBILINOGEN, URINE AUTO 0.2 mg/dL (0.0-2.0); WBC, URINE AUTO TNTC /HPF (0-3)
== END ==
DX: D72.829 Elevated white blood cell count, unspecified (principal); Z79.899 Other long term (current) drug therapy

== ENCOUNTER → 2018-07-29 | Outpatient (REF) ==
[2018-07-29 13:37] LABS: HEMOGLOBIN 8.9 g/dl (13.5-17.5); MEAN CORPUSCULAR HEMOGLOBIN 30.1 pg (27.0-33.0); MEAN CORPUSCULAR HGB CONC 31.8 g/dl (32.0-36.5); MEAN CORPUSCULAR VOLUME 94.6 fl (80.0-96.0); PLATELET COUNT, AUTOMATED 272 10^3/uL (150-450); RED BLOOD COUNT 2.96 10^6/uL (4.30-6.10); RED CELL DISTRIBUTION WIDTH 14.8 % (11.5-14.5); WHITE BLOOD COUNT 7.7 10^3/uL (4.0-10.0)
[2018-07-29 13:57] LABS: ANION GAP 7 MEQ/L (8-16); BLOOD UREA NITROGEN 25 MG/DL (7-18); CALCIUM LEVEL 8.1 MG/DL (8.8-10.2); CARBON DIOXIDE LEVEL 29 MEQ/L (21-32); CHLORIDE LEVEL 105 MEQ/L (98-107); CREATININE FOR GFR 1.06 MG/DL (0.70-1.30); GLOMERULAR FILTRATION RATE > 60.0 (>42); GLUCOSE, FASTING 103 MG/DL (70-100); POTASSIUM SERUM 4.1 MEQ/L (3.5-5.1); SODIUM LEVEL 141 MEQ/L (136-145)
== END ==
DX: N39.0 Urinary tract infection, site not specified (principal)

== ENCOUNTER → 2018-07-31 | Outpatient (REF) ==
[2018-07-31 09:44] LABS: MEAN CORPUSCULAR HGB CONC 32.1 g/dl (32.0-36.5); MEAN CORPUSCULAR VOLUME 93.3 fl (80.0-96.0); PLATELET COUNT, AUTOMATED 267 10^3/uL (150-450); RED CELL DISTRIBUTION WIDTH 14.6 % (11.5-14.5); WHITE BLOOD COUNT 6.6 10^3/uL (4.0-10.0)
[2018-07-31 10:10] LABS: ANION GAP 9 MEQ/L (8-16); BLOOD UREA NITROGEN 23 MG/DL (7-18); CALCIUM LEVEL 8.8 MG/DL (8.8-10.2); CARBON DIOXIDE LEVEL 28 MEQ/L (21-32); CHLORIDE LEVEL 103 MEQ/L (98-107); CREATININE FOR GFR 0.92 MG/DL (0.70-1.30); GLOMERULAR FILTRATION RATE > 60.0 (>42); GLUCOSE, FASTING 137 MG/DL (70-100); POTASSIUM SERUM 4.2 MEQ/L (3.5-5.1); SODIUM LEVEL 140 MEQ/L (136-145)
== END ==
DX: D64.9 Anemia, unspecified (principal)

== ENCOUNTER → 2018-08-05 | Outpatient (REF) ==
[2018-08-05 07:42] LABS: HEMATOCRIT 25.8 % (42.0-52.0); HEMOGLOBIN 8.2 g/dl (13.5-17.5); MEAN CORPUSCULAR HEMOGLOBIN 30.1 pg (27.0-33.0); MEAN CORPUSCULAR HGB CONC 31.8 g/dl (32.0-36.5); MEAN CORPUSCULAR VOLUME 94.9 fl (80.0-96.0); PLATELET COUNT, AUTOMATED 260 10^3/uL (150-450); RED BLOOD COUNT 2.72 10^6/uL (4.30-6.10); RED CELL DISTRIBUTION WIDTH 14.7 % (11.5-14.5); WHITE BLOOD COUNT 6.9 10^3/uL (4.0-10.0)
[2018-08-05 08:09] LABS: ANION GAP 7 MEQ/L (8-16); BLOOD UREA NITROGEN 23 MG/DL (7-18); CALCIUM LEVEL 8.2 MG/DL (8.8-10.2); CARBON DIOXIDE LEVEL 28 MEQ/L (21-32); CHLORIDE LEVEL 106 MEQ/L (98-107); CREATININE FOR GFR 0.98 MG/DL (0.70-1.30); GLOMERULAR FILTRATION RATE > 60.0 (>42); GLUCOSE, FASTING 84 MG/DL (70-100); POTASSIUM SERUM 4.5 MEQ/L (3.5-5.1); SODIUM LEVEL 141 MEQ/L (136-145)
[2018-08-05 13:46] LABS: IRON (FE) 30 UG/DL (65-175); PERCENT SATURATION 14.5 % (19.7-50.0); TOTAL IRON BINDING CAPACITY 207 UG/DL (250-450)
[2018-08-06 08:08] LABS: TRANSFERRIN 176 mg/dL (200-370)
== END ==
DX: D64.9 Anemia, unspecified (principal)

== ENCOUNTER → 2018-08-08 | Outpatient (REF) ==
[2018-08-08 09:45] LABS: HEMATOCRIT 27.6 % (42.0-52.0); HEMOGLOBIN 8.7 g/dl (13.5-17.5); MEAN CORPUSCULAR HEMOGLOBIN 29.9 pg (27.0-33.0); MEAN CORPUSCULAR HGB CONC 31.5 g/dl (32.0-36.5); MEAN CORPUSCULAR VOLUME 94.8 fl (80.0-96.0); PLATELET COUNT, AUTOMATED 278 10^3/uL (150-450); RED BLOOD COUNT 2.91 10^6/uL (4.30-6.10); RED CELL DISTRIBUTION WIDTH 14.6 % (11.5-14.5)
== END ==
DX: D64.9 Anemia, unspecified (principal)

== ENCOUNTER → 2018-08-09 | Outpatient (REF) | payer MEDICARE ==
[2018-08-09 14:01] LABS: BACTERIA, URINE AUTO 2+ (NEGATIVE); MUCUS, URINE MODERATE (NEGATIVE); RBC, URINE AUTO 32 /HPF (0-3); SQUAMOUS EPITHELIAL CELL UR AU 0 /HPF (0-6); WBC, URINE AUTO TNTC /HPF (0-3)
== END ==
LOC: M SMT 13:25
PROVIDERS: ATTEND Specialist
DX: R33.9 Retention of urine, unspecified (principal)

== ENCOUNTER → 2018-08-26 | Outpatient (CLI) | payer MEDICARE ==
[2018-08-26 19:10] LABS: HEMATOCRIT 35.3 % (42.0-52.0); HEMOGLOBIN 10.8 g/dl (13.5-17.5); MEAN CORPUSCULAR HEMOGLOBIN 28.8 pg (27.0-33.0); MEAN CORPUSCULAR HGB CONC 30.6 g/dl (32.0-36.5); MEAN CORPUSCULAR VOLUME 94.1 fl (80.0-96.0); PLATELET COUNT, AUTOMATED 290 10^3/uL (150-450); RED BLOOD COUNT 3.75 10^6/uL (4.30-6.10); RED CELL DISTRIBUTION WIDTH 14.9 % (11.5-14.5); WHITE BLOOD COUNT 8.6 10^3/uL (4.0-10.0)
[2018-08-26 19:11] LABS: ANION GAP 7 MEQ/L (8-16); BLOOD UREA NITROGEN 28 MG/DL (7-18); CALCIUM LEVEL 8.8 MG/DL (8.8-10.2); CARBON DIOXIDE LEVEL 30 MEQ/L (21-32); CHLORIDE LEVEL 103 MEQ/L (98-107); CREATININE FOR GFR 1.14 MG/DL (0.70-1.30); GLOMERULAR FILTRATION RATE > 60.0 (>42); GLUCOSE, FASTING 95 MG/DL (70-100); POTASSIUM SERUM 4.3 MEQ/L (3.5-5.1); SODIUM LEVEL 140 MEQ/L (136-145)
== END ==
LOC: M SMT 11:42
DX: I25.10 Atherosclerotic heart disease of native coronary artery without angina pectoris (principal); D64.9 Anemia, unspecified
CPT/HCPCS: 80048

== ENCOUNTER 2019-02-22 12:37 | Emergency (ER) | payer MEDICARE ==
[~2019-02-22] VITALS: Ht 180.3 cm; Wt 106.7 kg
[~2019-02-22 12:37] MED LIST changes: +SENN1TAB41 PO; -SENN8.6T7 PO
[2019-02-22] MEDS ORDERED: FURO20TA2 PO (12:49)
[2019-02-22] MEDS ORDERED: SPIR-10 PO (12:49)
[2019-02-22 12:56] VITALS: BP 134/66
--- NOTE | 2019-02-22 13:14 | REP ---
Clinical: Trauma/fall with shortness of breath Comparison: 07/08/2018 . Technique: PA and lateral. Findings: The mediastinum and cardiac silhouette are normal. Dual lead pacemaker identified. The lung ku are clear and without acute consolidation, effusion, or pneumothorax. The skeletal structures are intact and normal. Impression: 1. No acute cardiopulmonary process. Electronically Signed by Israel Hough MD 02/22/2019 01:06 P
[2019-02-22] MEDS ORDERED: TYLETAB14 PO ×2 (13:22→13:24)
[2019-02-22] MEDS ORDERED: ACETAMINOPH W/CODEINE #3 TAB UD PO ONE (13:30)
== END 2019-02-22 13:40 | disposition home or self-care (01) ==
LOC: M ED 12:37
DX: R07.89 Other chest pain (principal); R06.02 Shortness of breath; W01.0XXA Fall on same level from slipping, tripping and stumbling without subsequent striking against object, initial encounter; Y92.89 Other specified places as the place of occurrence of the external cause; G20 Parkinson's disease; I50.9 Heart failure, unspecified; I11.0 Hypertensive heart disease with heart failure; Z95.5 Presence of coronary angioplasty implant and graft; Z95.0 Presence of cardiac pacemaker; Z87.891 Personal history of nicotine dependence; N40.0 Benign prostatic hyperplasia without lower urinary tract symptoms; K57.90 Diverticulosis of intestine, part unspecified, without perforation or abscess without bleeding; Z79.899 Other long term (current) drug therapy; Z79.02 Long term (current) use of antithrombotics/antiplatelets

== ENCOUNTER → 2019-04-09 | Outpatient (REF) ==
[~2019-04-09] MED LIST changes: +ASPI-524 PO; -ASPI1TAB20 PO; +FURO20TA2 PO; +SPIR-10 PO; +TYLETAB14 PO
[2019-04-09 09:44] LABS: HEMATOCRIT 24.9 % (42.0-52.0); HEMOGLOBIN 7.8 g/dl (13.5-17.5); MEAN CORPUSCULAR HEMOGLOBIN 29.9 pg (27.0-33.0); MEAN CORPUSCULAR HGB CONC 31.3 g/dl (32.0-36.5); MEAN CORPUSCULAR VOLUME 95.4 fl (80.0-96.0); PLATELET COUNT, AUTOMATED 365 10^3/uL (150-450); RED BLOOD COUNT 2.61 10^6/uL (4.30-6.10); WHITE BLOOD COUNT 14.5 10^3/uL (4.0-10.0)
[2019-04-09 09:59] LABS: INR 2.59; PROTHROMBIN TIME 27.6 SECONDS (11.8-14.0)
[2019-04-09 10:11] LABS: ALT/SGPT 64 U/L (12-78); BILIRUBIN,TOTAL 1.3 MG/DL (0.2-1.0); BLOOD UREA NITROGEN 40 MG/DL (7-18); CALCIUM LEVEL 8.8 MG/DL (8.8-10.2); CARBON DIOXIDE LEVEL 30 MEQ/L (21-32); CHLORIDE LEVEL 102 MEQ/L (98-107); CREATININE FOR GFR 1.05 MG/DL (0.70-1.30); GLOMERULAR FILTRATION RATE > 60.0 (>42); GLUCOSE, FASTING 87 MG/DL (70-100); NT-PRO BNP 4408 PG/ML (<450); SODIUM LEVEL 139 MEQ/L (136-145); TOTAL PROTEIN 6.5 GM/DL (6.4-8.2)
--- NOTE | 2019-04-09 14:17 | REP ---
Chest, single AP view with the patient sitting: Comparison is 02/22/2019. The visualized lung ku are clear. Cardiac size is normal. There are sternotomy wires as an interval change. There is a dual-chamber pacemaker, unchanged. The merissa, mediastinum, skeletal structures are unremarkable for portable positioning. 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 Impression: No acute cardiopulmonary findings. Electronically Signed by Don Messina MD 04/09/2019 02:08 P
== END ==
DX: I48.91 Unspecified atrial fibrillation (principal)

== ENCOUNTER → 2019-04-11 | Outpatient (REF) ==
[2019-04-11 10:00] LABS: HEMATOCRIT 29.8 % (42.0-52.0); HEMOGLOBIN 9.4 g/dl (13.5-17.5); MEAN CORPUSCULAR HEMOGLOBIN 31.1 pg (27.0-33.0); MEAN CORPUSCULAR HGB CONC 31.5 g/dl (32.0-36.5); MEAN CORPUSCULAR VOLUME 98.7 fl (80.0-96.0); PLATELET COUNT, AUTOMATED 454 10^3/uL (150-450); RED BLOOD COUNT 3.02 10^6/uL (4.30-6.10); WHITE BLOOD COUNT 12.5 10^3/uL (4.0-10.0)
[2019-04-11 10:15] LABS: INR 2.53; PROTHROMBIN TIME 27.1 SECONDS (11.8-14.0)
[2019-04-11 10:33] LABS: BLOOD UREA NITROGEN 32 MG/DL (7-18); CALCIUM LEVEL 8.9 MG/DL (8.8-10.2); CARBON DIOXIDE LEVEL 36 MEQ/L (21-32); CHLORIDE LEVEL 97 MEQ/L (98-107); CREATININE FOR GFR 1.13 MG/DL (0.70-1.30); GLOMERULAR FILTRATION RATE > 60.0 (>42); GLUCOSE, FASTING 106 MG/DL (70-100); NT-PRO BNP 3351 PG/ML (<450); POTASSIUM SERUM 3.2 MEQ/L (3.5-5.1); SODIUM LEVEL 140 MEQ/L (136-145)
== END ==
DX: R05 Cough (principal)

== ENCOUNTER → 2019-04-14 | Outpatient (REF) ==
[~2019-04-14] MED LIST changes: -ASPI-524 PO; +ASPI325T57 PO; +COUM1TAB17 PO; +FOLI400T PO; +KLOR20TA42 PO; +MULTCAP PO; -OMEP40CA2 PO; +OMEP40CA97 PO; +VITA500C24 PO; +ZOLO25TA PO
== END ==
DX: Z79.01 Long term (current) use of anticoagulants (principal)

== ENCOUNTER → 2019-04-14 | Outpatient (REF) ==
[2019-04-14 13:37] LABS: INR 2.64; PROTHROMBIN TIME 28.1 SECONDS (11.8-14.0)
== END ==
DX: I50.9 Heart failure, unspecified (principal); I48.91 Unspecified atrial fibrillation

== ENCOUNTER → 2019-04-15 | Outpatient (REF) ==
[~2019-04-15] MED LIST changes: +ASPI-524 PO; -ASPI325T57 PO; -COUM1TAB17 PO; -FOLI400T PO; -KLOR20TA42 PO; -MULTCAP PO; +OMEP40CA2 PO; -OMEP40CA97 PO; -VITA500C24 PO; -ZOLO25TA PO
[2019-04-15 09:26] LABS: HEMOGLOBIN 9.8 g/dl (13.5-17.5); MEAN CORPUSCULAR HEMOGLOBIN 30.2 pg (27.0-33.0); MEAN CORPUSCULAR HGB CONC 31.6 g/dl (32.0-36.5); MEAN CORPUSCULAR VOLUME 95.4 fl (80.0-96.0); PLATELET COUNT, AUTOMATED 444 10^3/uL (150-450); RED BLOOD COUNT 3.25 10^6/uL (4.30-6.10); WHITE BLOOD COUNT 9.9 10^3/uL (4.0-10.0)
[2019-04-15 09:57] LABS: BLOOD UREA NITROGEN 33 MG/DL (7-18); CALCIUM LEVEL 8.8 MG/DL (8.8-10.2); CARBON DIOXIDE LEVEL 34 MEQ/L (21-32); CHLORIDE LEVEL 98 MEQ/L (98-107); CREATININE FOR GFR 1.18 MG/DL (0.70-1.30); GLOMERULAR FILTRATION RATE > 60.0 (>42); GLUCOSE, FASTING 129 MG/DL (70-100); NT-PRO BNP 2653 PG/ML (<450); POTASSIUM SERUM 3.6 MEQ/L (3.5-5.1); SODIUM LEVEL 138 MEQ/L (136-145)
== END ==
PROVIDERS: ATTEND Physician Assistant
DX: R05 Cough (principal)

== ENCOUNTER → 2019-04-16 | Outpatient (CLI) | payer MEDICARE ==
--- NOTE | 2019-04-18 22:21 | HOLTMON ---
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 The average heart rate was 61 BPM, with the minimum rate, 57 BPM and the maximum rate, 134 BPM. Supraventricular ectopic activity consisted of 104 beats, which included 85 single beats, 5 pairs, and 2 runs of 3 beats or longer. The fastest & longest supraventricular run had a rate of 127 BPM and was 6 beats long. Rare PVCs. Rare but appropriate DDD pacing. Electronically Signed on 04-18-2019 22:20:38 EDT by Oj Castillo
== END ==
LOC: M EKG 13:29
PROVIDERS: ATTEND Physician Assistant
DX: R42 Dizziness and giddiness (principal); R06.02 Shortness of breath

== ENCOUNTER → 2019-04-18 | Outpatient (REF) | payer MEDICARE ==
[2019-04-18 11:41] LABS: INR 1.98; PROTHROMBIN TIME 22.3 SECONDS (11.8-14.0)
== END ==
DX: Z79.01 Long term (current) use of anticoagulants (principal)

== ENCOUNTER → 2019-04-23 | Outpatient (REF) | payer MEDICARE ==
[2019-04-23 11:26] LABS: HEMATOCRIT 34.8 % (42.0-52.0); HEMOGLOBIN 11.1 g/dl (13.5-17.5); MEAN CORPUSCULAR HGB CONC 31.9 g/dl (32.0-36.5); MEAN CORPUSCULAR VOLUME 94.1 fl (80.0-96.0); PLATELET COUNT, AUTOMATED 323 10^3/uL (150-450); WHITE BLOOD COUNT 8.7 10^3/uL (4.0-10.0)
[2019-04-23 11:40] LABS: INR 1.57; PROTHROMBIN TIME 18.5 SECONDS (11.8-14.0)
[2019-04-23 12:11] LABS: BLOOD UREA NITROGEN 43 MG/DL (7-18); CALCIUM LEVEL 9.3 MG/DL (8.8-10.2); CARBON DIOXIDE LEVEL 33 MEQ/L (21-32); CHLORIDE LEVEL 98 MEQ/L (98-107); CREATININE FOR GFR 1.19 MG/DL (0.70-1.30); GLOMERULAR FILTRATION RATE > 60.0 (>42); GLUCOSE, FASTING 157 MG/DL (70-100); NT-PRO BNP 847 PG/ML (<450); POTASSIUM SERUM 3.4 MEQ/L (3.5-5.1); SODIUM LEVEL 139 MEQ/L (136-145)
== END ==
PROVIDERS: ATTEND Physician Assistant
DX: I48.91 Unspecified atrial fibrillation (principal); I50.9 Heart failure, unspecified

== ENCOUNTER → 2019-04-25 | Outpatient (REF) | payer MEDICARE ==
[2019-04-25 07:24] LABS: INR 2.03; PROTHROMBIN TIME 22.7 SECONDS (11.8-14.0)
== END ==
DX: I48.91 Unspecified atrial fibrillation (principal)

== ENCOUNTER → 2019-04-29 | Outpatient (REF) | payer MEDICARE ==
[2019-04-29 14:29] LABS: HEMATOCRIT 34.9 % (42.0-52.0); HEMOGLOBIN 10.8 g/dl (13.5-17.5); MEAN CORPUSCULAR HEMOGLOBIN 30.5 pg (27.0-33.0); MEAN CORPUSCULAR HGB CONC 30.9 g/dl (32.0-36.5); MEAN CORPUSCULAR VOLUME 98.6 fl (80.0-96.0); PLATELET COUNT, AUTOMATED 214 10^3/uL (150-450); RED BLOOD COUNT 3.54 10^6/uL (4.30-6.10); WHITE BLOOD COUNT 8.9 10^3/uL (4.0-10.0)
[2019-04-29 14:43] LABS: INR 2.16; PROTHROMBIN TIME 23.9 SECONDS (11.8-14.0)
[2019-04-29 14:51] LABS: BLOOD UREA NITROGEN 34 MG/DL (7-18); CARBON DIOXIDE LEVEL 31 MEQ/L (21-32); CHLORIDE LEVEL 102 MEQ/L (98-107); CREATININE FOR GFR 1.22 MG/DL (0.70-1.30); GLOMERULAR FILTRATION RATE > 60.0 (>42); GLUCOSE, FASTING 115 MG/DL (70-100); NT-PRO BNP 840 PG/ML (<450); POTASSIUM SERUM 4.9 MEQ/L (3.5-5.1); SODIUM LEVEL 139 MEQ/L (136-145)
== END ==
PROVIDERS: ATTEND Physician Assistant
DX: Z79.01 Long term (current) use of anticoagulants (principal)

== ENCOUNTER → 2019-05-07 | Outpatient (REF) ==
[2019-05-07 10:33] LABS: INR 1.89; PROTHROMBIN TIME 21.5 SECONDS (11.8-14.0)
== END ==
DX: Z79.01 Long term (current) use of anticoagulants (principal)

== ENCOUNTER → 2019-05-09 | Outpatient (REF) | payer MEDICARE ==
[2019-05-09 13:12] LABS: PERCENT SATURATION 16.9 % (19.7-50.0)
[2019-05-09 13:25] LABS: FOLATE 23.9 NG/ML (>5.4)
== END ==
LOC: M LAB REF 12:41
PROVIDERS: ATTEND Internal Medicine
DX: D64.9 Anemia, unspecified (principal)

== ENCOUNTER → 2019-07-10 | Outpatient (REF) | payer MEDICARE ==
[~2019-07-10] MED LIST changes: -ASPI-524 PO; +ASPI325T57 PO; +COUM1TAB17 PO; +FOLI400T PO; +KLOR20TA42 PO; +MULTCAP PO; -OMEP40CA2 PO; +OMEP40CA97 PO; +VITA500C24 PO; +ZOLO25TA PO
== END ==
LOC: M LAB REF 12:37
PROVIDERS: ATTEND Internal Medicine
DX: D50.9 Iron deficiency anemia, unspecified (principal)

== ENCOUNTER 2019-07-21 13:12 | Outpatient (RCR) | payer MEDICARE ==
--- NOTE | 2019-06-30 13:31 | CARECAPL ---
Assessment Account #s: Initial Assessment General Diagnoses: CABG, AVR Date of event: Mar 28, 2019 Physician: Dannie Horan MD Allergies: Coded Allergies: No Known Allergies (Unverified , 06/14/18) Date Entered Program: Jun 30, 2019 Risk strat for cardiac event: High Exercise Assessment: Initial Assessment Stages of change: Contemplate Exercise Prescription Plan educate on cardiovascular disease and increase endurance, strength and flexibility through monitored exercise. Modalities initiated: Nustep (will add resistance of 1 for 6 minutes), Arm Aerometer (will add resistance of 1 for 5 minutes), Dumbells (will add 1lb weights 1 set for 6 reps), Recumbent Bike (will add resistance of 1 for 5 minutes) Frequency: 2-3 Duration (Minutes) 30 - 60 minutes total exercise a day. 15 - 20 work intervals in minutes. PRN rest intervals in minutes. Functional Capacity Goal Sustained Metabolic Equivalent of a task (MET) goal of 2.0-3.0 for 15-20 minutes. Intensity: 3-Moderate Progression (METS) Increase by: 0.5 METS every: 3-5 sessions Angina with ex: Yes Target Heart Rate rest + 35-40 per beta naima therapy. Resistance Training: Yes Weight (pounds): 1 Reps: 6-8 Medications Scheduled Atorvastatin Calcium (Atorvastatin Calcium), 40 MG PO QPM, (Reported) Cholecalciferol (Vitamin D3) (Vitamin D3), 1,000 UNIT PO DAILY, (Reported) Clopidogrel Bisulfate (Clopidogrel), 75 MG PO QHS, (Reported) Ferrous Gluconate (Ferrous Gluconate), 324 MG PO TID, (Reported) Furosemide (Furosemide), 40 MG PO BID, (Reported) Metoprolol Succinate (Metoprolol Succinate), 12.5 MG PO BID Potassium Chloride (Klor-Con M20), 1 TAB PO DAILY, (Reported) Pramipexole Dihydrochloride (Pramipexole Dihydrochlori), 0.5 MG PO TID, (Reported) Sennosides/Docusate Sodium (Senna-S Tablet), 1 TAB PO BID, (Reported) Spironolactone (Spironolactone), 1 TAB PO DAILY, (Reported) Tamsulosin HCl (Flomax), 0.4 MG PO QPM, (Reported) Scheduled PRN Acetaminophen (Acetaminophen), 650 MG PO Q4H PRN for PAIN, (Reported) Acetaminophen with Codeine (Tylenol with Codeine #3 Tablet), 1 TAB PO Q6HP PRN for pain Bisacodyl (Bisacodyl), 10 MG AK DAILY PRN for CONSTIPATION, (Reported) Milk Of Magnesia (Milk of Magnesia), 30 ML PO DAILY PRN for CONSTIPATION, (Reported) Nitroglycerin (Nitrostat), 0.4 MG SL Q5MP PRN for CHEST PAIN, (Reported) Oxycodone HCl (Oxycodone HCl), 5 MG PO Q4H PRN for PAIN, (Reported) Sodium Phosphate,[place]-Dibasic (Enema Cubhm-Eb-[id number]), 1 ERNESTINA AK DAILY PRN for CONSTIPATION, (Reported) Education Goals Met: No Target Goals Individual exercise Rx (1) BP 140/90 or 130/80 if DM or CKD (1) Aerobic active 30+min 5 days per week (1) Nutrition Date: Jun 30, 2019 Assessment: Initial Assessment Stages of change: Contemplate Lipid- med/supplement atorvastatin Diabetes Diabetes: No Weight Management Weight (lbs): 232 Height (inches): 70 Waist Circumference (Inches): 47 BMI: 33.28 Weight goal: 175 Special Diet: mediteranean diet Vitamin/Supplements: Multivitamin, Vitamin C Alcohol: none Diet Access Tool: Rate your plate Score: 62 Referral to Diabetes education: No Referral to lipid clinic: No Referral to weight mangement p: No Education Goals Met: No Target goal LDL-C<100 if triglycerides are >200 Non-HDL-C should be <130 (1) LDL-C<70 for high risk patients (4) HbA1c<7% (1) BMI<25 Waist cir<40in M/<35in F (1) Education Date: Jun 30, 2019 Assessment: Initial Assessment Learning Barriers: ready Knowledge Test Score: 9 Stages of change: Contemplate Family Support: Yes Tobacco use: Yes Quit: >6 months (quit smoking in 1978) Tobacco Use Smokeless tobacco: No Intervention Referral to smoking cessation: No Individual education and couns: No Tobacco Adjunct: No Education class schedule given: No Attended education classes: No Education Goals Met: No Target Goals Complete cessation of tobacco use (1). Psychosocial Date: Jun 30, 2019 Assessment: Initial Assessment Psych Test (Initial/Discharge) Tool Used: CESD Score: 8 Stages of change: Contemplate Intervention Physician Consult: No Physician Referral: No Psychotropic medication zoloft Education Goals Met: No Target Goal Assess presence or absence of depression using a valid screening tool (1). Maximize coping skills (2). Positive support system (2). Patient/Program Goal Preventative Medication: Yes Beta blockade, Yes Statin/OTR lipid Lowering, Yes Other (coumadin) Fall Risk Assess: Yes (positive for fall risk) Assisstive Device: cane Provider Assessment Provider Assessment: Proceed with rehab Prema Sellers RN Jun 30, 2019 13:31
--- NOTE | 2019-07-23 09:25 | CARECAPL ---
Assessment Account #s: Re-Assessment I General Diagnoses: CABG, AVR Date of event: Mar 28, 2019 Physician: Dannie Horan MD Allergies: Coded Allergies: No Known Allergies (Unverified , 06/14/18) Date Entered Program: Jul 07, 2019 Risk strat for cardiac event: High Exercise Date: Jul 21, 2019 Assessment: Re-Assessment I Stages of change: Preperation Exercise Prescription Plan Educate on cardiovascular disease and increased endurance, strength and flexibility through a monitored exercise program Modalities initiated: Nustep (resistance of 4 for 10 minutes. Mets 4.7 RPE 3), Arm Aerometer (resistance of 2.0 for 7 minutes mets 2.1 RPE 3), Dumbells (2lbs 1 set for 8 reps. RPE to), Recumbent Bike (resistance of 2 for 7 minutes. Mets 4.4 RPE 3) Frequency: 2 Duration (Minutes) 30 - 60 minutes total exercise a day. 15 - 20 work intervals in minutes. PRN rest intervals in minutes. Functional Capacity Goal Sustained Metabolic Equivalent of a task (MET) goal of 4.0-4.5 for 15-20 minutes. Intensity: 3-Moderate Progression (METS) Increase by: 0.5 METS every: 3-5 sessions Angina with ex: No Target Heart Rate Rest +35-40 per beta naima therapy Resistance Training: Yes Weight (pounds): 2 Reps: 8-12 Hypertension: No Hypertension controlled with: Medication Resting 118/70 Peak Exercise BP 146/80 Meds Metoprolol Medications Scheduled Ascorbic Acid (Vitamin C), 500 MG PO DAILY, (Reported) Atorvastatin Calcium (Atorvastatin Calcium), 40 MG PO QPM, (Reported) Cholecalciferol (Vitamin D3) (Vitamin D3), 1,000 UNIT PO DAILY, (Reported) Clopidogrel Bisulfate (Clopidogrel), 75 MG PO QHS, (Reported) Ferrous Gluconate (Ferrous Gluconate), 324 MG PO TID, (Reported) Folic Acid (Folic Acid), 1 TAB PO DAILY, (Reported) Furosemide (Furosemide), 40 MG PO BID, (Reported) Metoprolol Succinate (Metoprolol Succinate), 12.5 MG PO BID Multivitamin (Multivitamins), 1 CAP PO DAILY, (Reported) Potassium Chloride (Klor-Con M20), 1 TAB PO DAILY, (Reported) Pramipexole Dihydrochloride (Pramipexole Dihydrochlori), 0.5 MG PO TID, (Reported) Sennosides/Docusate Sodium (Senna-S Tablet), 1 TAB PO BID, (Reported) Sertraline Hcl (Zoloft), 75 MG PO DAILY, (Reported) Spironolactone (Spironolactone), 1 TAB PO DAILY, (Reported) Tamsulosin HCl (Flomax), 0.4 MG PO QPM, (Reported) Warfarin Sodium (Coumadin), 5 MG PO DAILY, (Reported) Scheduled PRN Acetaminophen (Acetaminophen), 650 MG PO Q4H PRN for PAIN, (Reported) Acetaminophen with Codeine (Tylenol with Codeine #3 Tablet), 1 TAB PO Q6HP PRN for pain Bisacodyl (Bisacodyl), 10 MG DC DAILY PRN for CONSTIPATION, (Reported) Milk Of Magnesia (Milk of Magnesia), 30 ML PO DAILY PRN for CONSTIPATION, (Reported) Nitroglycerin (Nitrostat), 0.4 MG SL Q5MP PRN for CHEST PAIN, (Reported) Oxycodone HCl (Oxycodone HCl), 5 MG PO Q4H PRN for PAIN, (Reported) Sodium Phosphate,[place]-Dibasic (Enema [id number]-[id number]), 1 ERNESTINA DC DAILY PRN for CONSTIPATION, (Reported) Intervention Education: RPE Scale (patient demonstrates independence), Equipment orientation (patient demonstrates independence), warm up/cool down (patient demonstrates ind ependence) Education Goals Met: No (will continue to educate her a program) Target Goals Individual exercise Rx (1) BP 140/90 or 130/80 if DM or CKD (1) Aerobic active 30+min 5 days per week (1) Nutrition Date: Jul 23, 2019 Assessment: Re-Assessment I Stages of change: Preperation Lipids Total Cholesterol (170), High Density Lipids (HDL) (72), Low Density Lipids ( LDL) (80), Triglycerides (89), Lipid med/supplement (Atorvastatin 40mg at bedtime.) Med Change: No Diabetes Diabetes: No Medication Change: No Current Weight (pounds): 231 Weight Goal Patient states would like to lose 2 pounds in 30 days. Intervention [employer] Library Media Specialist Consult: No Nurse/patient discussion: No Diet Class: No Education Goals Met: No (will continue to educate throughout program) Target goal LDL-C<100 if triglycerides are >200 Non-HDL-C should be <130 (1) LDL-C<70 for high risk patients (4) HbA1c<7% (1) BMI<25 Waist cir<40in M/<35in F (1) Education Date: Jul 23, 2019 Assessment: Re-Assessment I Stages of change: Preperation Family Support: Yes Tobacco use: No Education Goals Met: No (will continue to educate throughout program) Target Goals Complete cessation of tobacco use (1). Psychosocial Date: Jul 23, 2019 Assessment: Re-Assessment I Stages of change: Preperation Med Change: No Stress Management Class: No Uses Stress Management Skills: No Education Goals Met: No (will continue to educate throughout program) Target Goal Assess presence or absence of depression using a valid screening tool (1). Maximize coping skills (2). Positive support system (2). Patient/Program Goal Preventative Medication: Yes Clopidogrel, Yes Beta blockade, Yes Statin/OTR lipid Lowering Fall Risk Assess: Yes (patient is a fall risk) Assisstive Device: cane Provider Assessment Session Number: 4 Provider Assessment: Proceed with rehab (patient is progressing in cardiac rehabilitation.) Prema Sellers RN Jul 23, 2019 09:25
== END 2019-07-24 ==
LOC: M CR 13:12
PROVIDERS: ATTEND Internal Medicine Cardiovascular Disease
DX: Z95.1 Presence of aortocoronary bypass graft (principal); Z95.2 Presence of prosthetic heart valve

== ENCOUNTER 2019-08-15 13:59 | Outpatient (RCR) | payer MEDICARE ==
--- NOTE | 2019-08-11 17:57 | CARECAPL ---
Assessment Account #s: Re-Assessment II General Diagnoses: CABG, AVR Date of event: Mar 28, 2019 Physician: aDnnie Horan MD Allergies: Coded Allergies: No Known Allergies (Unverified , 06/14/18) Date Entered Program: Jun 27, 2019 Risk strat for cardiac event: High Exercise Date: Aug 11, 2019 Assessment: Re-Assessment II Stages of change: Preperation Exercise Prescription Plan TO EDUCATE AND BUILD ENDURANCE THROUGH A MONITORED EXERCISE PROGRAM Modalities initiated: Nustep (METS=2.3/RPE=3), Arm Aerometer (METS=1.5/RPE=3), Dumbells (3#/RPE=3), Recumbent Bike (METS=3.2/RPE=3.5) Frequency: 3 Duration (Minutes) 30 - 60 minutes total exercise a day. 15 - 20 work intervals in minutes. PRN rest intervals in minutes. Functional Capacity Goal Sustained Metabolic Equivalent of a task (MET) goal of 4.0-4.5 for 15-20 minutes. Intensity: 3-Moderate Progression (METS) Increase by: 0.5 METS every: 5 sessions TOLERATED Angina with ex: No Target Heart Rate REST + 35-40 PER BETA RA THERAPY Resistance Training: Yes Weight (pounds): 3 Reps: 8-12 Hypertension: Yes Hypertension controlled with: Medication (METOPROLOL) Resting 124/70 Peak Exercise BP 140/82 Medications Scheduled Ascorbic Acid (Vitamin C), 500 MG PO DAILY, (Reported) Atorvastatin Calcium (Atorvastatin Calcium), 40 MG PO QPM, (Reported) Cholecalciferol (Vitamin D3) (Vitamin D3), 1,000 UNIT PO DAILY, (Reported) Clopidogrel Bisulfate (Clopidogrel), 75 MG PO QHS, (Reported) Ferrous Gluconate (Ferrous Gluconate), 324 MG PO TID, (Reported) Folic Acid (Folic Acid), 1 TAB PO DAILY, (Reported) Furosemide (Furosemide), 40 MG PO BID, (Reported) Metoprolol Succinate (Metoprolol Succinate), 12.5 MG PO BID Multivitamin (Multivitamins), 1 CAP PO DAILY, (Reported) Potassium Chloride (Klor-Con M20), 1 TAB PO DAILY, (Reported) Pramipexole Dihydrochloride (Pramipexole Dihydrochlori), 0.5 MG PO TID, (Reported) Sennosides/Docusate Sodium (Senna-S Tablet), 1 TAB PO BID, (Reported) Sertraline Hcl (Zoloft), 75 MG PO DAILY, (Reported) Spironolactone (Spironolactone), 1 TAB PO DAILY, (Reported) Tamsulosin HCl (Flomax), 0.4 MG PO QPM, (Reported) Warfarin Sodium (Coumadin), 5 MG PO DAILY, (Reported) Scheduled PRN Acetaminophen (Acetaminophen), 650 MG PO Q4H PRN for PAIN, (Reported) Acetaminophen with Codeine (Tylenol with Codeine #3 Tablet), 1 TAB PO Q6HP PRN for pain Bisacodyl (Bisacodyl), 10 MG [place] DAILY PRN for CONSTIPATION, (Reported) Milk Of Magnesia (Milk of Magnesia), 30 ML PO DAILY PRN for CONSTIPATION, (Reported) Nitroglycerin (Nitrostat), 0.4 MG SL Q5MP PRN for CHEST PAIN, (Reported) Oxycodone HCl (Oxycodone HCl), 5 MG PO Q4H PRN for PAIN, (Reported) Sodium Phosphate,[place]-Dibasic (Enema Bvuoc-Uy-Bak), 1 ERNESTINA [place] DAILY PRN for CONSTIPATION, (Reported) Current BP 106/70 Med Change: No Intervention Education: Self pulse (INSTRUCTED PATIENT TO TAKE HIS OWN PULSE, REINFORCEMENT WILL BE NECESSARY), Ex safety (PATIENT DEMONSTRATES INDEPENDENTLY WARM UP/COOL DOWN, STAYING HYDRATED), S/S to report (PATIENT VERBALIZES UNDERSTANDING TO REPORT CHEST PAIN/SOB OR ANY OTHER PAIN), Low NA diet (PATIENT VERBALIZES HE IS TO AVOID SALT DUE TO HER CARDIAC DISEASE), BP medication (REVIEWED ACTION OF METOPROLOL, DECREASING HEART RATE AND B/P CONTROL), RPE Scale (PATIENT DEMONSTRATES RPE SCALE INDEPENDENTLY WITH USE OF EXERCISE EQUIPMENT), Equipment orientation (PATIENT CONTINUES TO BE ORIENTED TO EACH PIECE OF EQUIPMENT USED), warm up/cool down (PATIENT DEMONSTRATES INDEPENDENTLY WARM UP/COOL DOWN EXERCISES), Understand BP (DISCUSSED THAT B/P SHOULD BE IN RANGE OF 120/80), Physical Active (PATIENT VERBALIZES UNDERSTANDING OF IMPORTANCE OF CONTINUED EXERCISE ONCE FINISHED WITH CARDIAC REHAB) Education Goals Met: No (PROGRESSING TOWARD GOALS) Target Goals Individual exercise Rx (1) BP 140/90 or 130/80 if DM or CKD (1) Aerobic active 30+min 5 days per week (1) Nutrition Date: Aug 11, 2019 Assessment: Re-Assessment II Stages of change: Preperation Lipid- med/supplement ATORVASTATIN Med Change: No Diabetes Diabetes: No Monitor Blood Sugar at home: No Medication Change: No Weight Management Weight (lbs): 234.8 Weight goal: 225 Special Diet: low salt, low-fat Vitamin/Supplements: Multivitamin, Vitamin C, Vitamin D Alcohol: none Current Weight (pounds): 234.8 Weight Goal 225 Intervention Paper Products Machine Operator Consult: No Nurse/patient discussion: Yes Dietary Goals TO EAT SMALLER HEART HEALTHY PORTIONS Diet Class: Yes (WILL SEE CHEMISTRY LAB INSTRUCTOR WHILE IN PROGRAM) Referral to Diabetes education: No Referral to lipid clinic: No Referral to weight mangement p: No Education Eating Healthy Education Goals Met: No (PROGRESSING TOWARD GOALS) Target goal LDL-C<100 if triglycerides are >200 Non-HDL-C should be <130 (1) LDL-C<70 for high risk patients (4) HbA1c<7% (1) BMI<25 Waist cir<40in M/<35in F (1) Education Date: Aug 11, 2019 Assessment: Re-Assessment II Learning Barriers: ready Stages of change: Preperation Family Support: Yes Tobacco use: No Tobacco Use Smokeless tobacco: No Intervention Referral to smoking cessation: No Individual education and couns: No Tobacco Adjunct: No Education class schedule given: No Attended education classes: No Education: Risk factors (DISCUSSED RISK FACTORS SUCH HIGH B/P, ELEVATED CHOLESTEROL), med compliance (DISCUSSED IMPORTANCE OF MEDICATION COMPLIANCE, PATIENT VERBALIZES UNDERSTANDING), cardiac A&P (REVIEWED STRUCTURE OF HEART, S/S ANGINA, PATIENT WILL NEED CONTINUED REINFORCEMENT), Angina S/S (REVIEWED S/S ANGINA SUCH SOB,CHEST PAIN OR PRESSURE, PATIENT VERBALIZES UNDERSTANDING) Education Goals Met: No (PROGRESSING TOWARD GOALS) Target Goals Complete cessation of tobacco use (1). Psychosocial Date: Aug 11, 2019 Assessment: Re-Assessment II Stages of change: Preperation Intervention Physician Consult: No Physician Referral: No Med Change: No Stress Management Class: No Uses Stress Management Skills: Yes Education Education: Coping Techniques (DISCUSSED COPING MEASURES SUCH TAKING TIME FOR HIMSELF, EXERCISE, TALKING WITH FRIENDS AND FAMILY), S/S depression (REVIEWED S/S DEPRESSION SUCH WITHDRAWAL, LACK OF MOTIVATION OR INTEREST, POOR APPETITE), Relaxation Techniques (DISCUSSED WAYS TO RELAX SUCH READING,MUSIC,EXERCISING, PATIENT VERBALIZES UNDERSTANDING) Education Goals Met: No (PROGRESSING TOWARD GOALS) Target Goal Assess presence or absence of depression using a valid screening tool (1). Maximize coping skills (2). Positive support system (2). Patient/Program Goal Preventative Medication: Yes Clopidogrel, Yes Beta blockade, Yes Statin/OTR lipid Lowering Fall Risk Assess: Yes (PATIENT IS A FALL RISK) Assisstive Device: walker Provider Assessment Session Number: 8 Provider Assessment: Proceed with rehab Tyler Vila RN Aug 11, 2019 17:57
== END 2019-08-23 ==
LOC: M CR 13:59
PROVIDERS: ATTEND Internal Medicine Cardiovascular Disease
DX: Z95.1 Presence of aortocoronary bypass graft (principal); Z95.2 Presence of prosthetic heart valve

== ENCOUNTER 2019-09-12 14:00 | Outpatient (RCR) | payer MEDICARE ==
--- NOTE | 2019-09-01 10:36 | CARECAPL ---
Assessment Account #s: Re-Assessment II (3) General Diagnoses: CABG, AVR Date of event: Mar 28, 2019 Physician: Dannie Horan MD Allergies: Coded Allergies: No Known Allergies (Unverified , 06/14/18) Date Entered Program: Jul 07, 2019 Risk strat for cardiac event: High Exercise Date: Aug 15, 2019 Assessment: Re-Assessment II (3) Stages of change: Preperation Exercise Prescription Plan Educate on cardiovascular disease and increased endurance, strength, and flexibility through a monitored exercise program. Modalities initiated: Nustep (resistants of 6 for 15 minutes. Mets 2.5 RPE E2. 5), Arm Aerometer (resistance of 2 for 10 minutes. Mets 2.4 RPE 3), Dumbells (3lbs 1 set 12 reps RPE 3), Recumbent Bike (resistant 2 for 10 minutes. Mets 4.3 RPE 3) Frequency: 2-3 Duration (Minutes) 30 - 60 minutes total exercise a day. 15 - 20 work intervals in minutes. PRN rest intervals in minutes. Functional Capacity Goal Sustained Metabolic Equivalent of a task (MET) goal of 4.0 - 4.5 for 15-20 minutes. Intensity: 3-Moderate Progression (METS) Increase by: 0.5 METS every: 3-5 sessions Angina with ex: Yes Target Heart Rate Rest +35-40 per beta naima therapy. Resistance Training: Yes Weight (pounds): 3 Reps: 12-15 Medications Scheduled Ascorbic Acid (Vitamin C), 500 MG PO DAILY, (Reported) Atorvastatin Calcium (Atorvastatin Calcium), 40 MG PO QPM, (Reported) Cholecalciferol (Vitamin D3) (Vitamin D3), 1,000 UNIT PO DAILY, (Reported) Clopidogrel Bisulfate (Clopidogrel), 75 MG PO QHS, (Reported) Ferrous Gluconate (Ferrous Gluconate), 324 MG PO TID, (Reported) Folic Acid (Folic Acid), 1 TAB PO DAILY, (Reported) Furosemide (Furosemide), 40 MG PO BID, (Reported) Metoprolol Succinate (Metoprolol Succinate), 12.5 MG PO BID Multivitamin (Multivitamins), 1 CAP PO DAILY, (Reported) Potassium Chloride (Klor-Con M20), 1 TAB PO DAILY, (Reported) Pramipexole Dihydrochloride (Pramipexole Dihydrochlori), 0.5 MG PO TID, (Report ed) Sennosides/Docusate Sodium (Senna-S Tablet), 1 TAB PO BID, (Reported) Sertraline Hcl (Zoloft), 75 MG PO DAILY, (Reported) Spironolactone (Spironolactone), 1 TAB PO DAILY, (Reported) Tamsulosin HCl (Flomax), 0.4 MG PO QPM, (Reported) Warfarin Sodium (Coumadin), 5 MG PO DAILY, (Reported) Scheduled PRN Acetaminophen (Acetaminophen), 650 MG PO Q4H PRN for PAIN, (Reported) Acetaminophen with Codeine (Tylenol with Codeine #3 Tablet), 1 TAB PO Q6HP PRN for pain Bisacodyl (Bisacodyl), 10 MG [place] DAILY PRN for CONSTIPATION, (Reported) Milk Of Magnesia (Milk of Magnesia), 30 ML PO DAILY PRN for CONSTIPATION, (Reported) Nitroglycerin (Nitrostat), 0.4 MG SL Q5MP PRN for CHEST PAIN, (Reported) Oxycodone HCl (Oxycodone HCl), 5 MG PO Q4H PRN for PAIN, (Reported) Sodium Phosphate,[place]-Dibasic (Enema [id number]), 1 ERNESTINA [place] DAILY PRN for CONSTIPATION, (Reported) Current BP 110/70 Med Change: No (see education on prior ITP's. We will continue to educate throughout program.) Target Goals Individual exercise Rx (1) BP 140/90 or 130/80 if DM or CKD (1) Aerobic active 30+min 5 days per week (1) Nutrition Date: Sep 01, 2019 Assessment: Re-Assessment II (3) Stages of change: Preperation Med Change: No Diabetes Diabetes: No Current Weight (pounds): 235 Intervention Applications Support Analyst Consult: No Nurse/patient discussion: Yes Dietary Goals Eat smaller portions Diet Class: No Education Eating Healthy (Eat healthier portions and vegetables and protein) Education Goals Met: No Target goal LDL-C<100 if triglycerides are >200 Non-HDL-C should be <130 (1) LDL-C<70 for high risk patients (4) HbA1c<7% (1) BMI<25 Waist cir<40in M/<35in F (1) Education Date: Sep 01, 2019 Assessment: Re-Assessment II (3) Stages of change: Preperation Family Support: Yes Intervention Education: CAD (Patient states coronary artery disease is caused by cholesterol clogging the artery.) Education Goals Met: No (See education on prior ITP's. Will continue to educate for a program.) Target Goals Complete cessation of tobacco use (1). Psychosocial Date: Sep 01, 2019 Assessment: Re-Assessment II (3) Stages of change: Preperation Med Change: No Stress Management Class: Yes Uses Stress Management Skills: Yes Education Goals Met: No (see education on prior ITP's. We will educate throughout program.) Target Goal Assess presence or absence of depression using a valid screening tool (1). Maximize coping skills (2). Positive support system (2). Patient/Program Goal Preventative Medication: Yes Beta blockade, Yes Statin/OTR lipid Lowering, Yes Other (warfarin) Fall Risk Assess: Yes (is a fall risk) Assisstive Device: cane Provider Assessment Session Number: 9 Provider Assessment: Proceed with rehab (patient's attendance has been poor. His only attended once since last ITP.) Prema Sellers RN Sep 01, 2019 10:36
== END 2019-09-23 ==
LOC: M CR 14:00
PROVIDERS: ATTEND Internal Medicine Cardiovascular Disease
DX: Z95.1 Presence of aortocoronary bypass graft (principal); Z95.2 Presence of prosthetic heart valve

== ENCOUNTER → 2019-09-22 | Outpatient (REF) | payer MEDICARE ==
[2019-09-22 18:35] LABS: PERCENT SATURATION 26.6 % (19.7-50.0)
== END ==
LOC: M LAB REF 16:59
PROVIDERS: ATTEND Internal Medicine
DX: D50.9 Iron deficiency anemia, unspecified (principal)

== ENCOUNTER 2019-09-26 13:26 | Outpatient (RCR) | payer MEDICARE ==
--- NOTE | 2019-09-29 16:52 | CARECAPL ---
Assessment Account #s: Discharge General Diagnoses: CABG, AVR Date of event: Mar 28, 2019 Physician: Dannie Horan MD Allergies: Coded Allergies: No Known Allergies (Unverified , 06/14/18) Date Entered Program: Jul 07, 2009 Risk strat for cardiac event: High Exercise Assessment: Followup/Discharge Stages of change: Preperation Exercise Prescription Plan TO EDUCATE AND BUILD ENDURANCE THROUGH MONITORED EXERCISE Modalities initiated: Cardio-Strider (METS=2.8/RPE=3), Nustep (METS=4.0/RPE=3), Arm Aerometer (METS=2.0/RRPE=3), Dumbells (4#/RPE=3), Recumbent Bike (METS=3.7/RPE=3) Frequency: 3 Duration (Minutes) 30 - 60 minutes total exercise a day. 15 - 20 work intervals in minutes. PRN rest intervals in minutes. Functional Capacity Goal Sustained Metabolic Equivalent of a task (MET) goal of for minutes. Intensity: 3-Moderate Progression (METS) Increase by: METS every: sessions Angina with ex: No Target Heart Rate REST +35-40 BASED ON BETA RA Resistance Training: Yes Weight (pounds): 3 Reps: 8-12 Hypertension: No Hypertension controlled with: Medication Resting 130/70 Peak Exercise BP 150/90 Medications Scheduled Ascorbic Acid (Vitamin C), 500 MG PO DAILY, (Reported) Atorvastatin Calcium (Atorvastatin Calcium), 40 MG PO QPM, (Reported) Cholecalciferol (Vitamin D3) (Vitamin D3), 1,000 UNIT PO DAILY, (Reported) Clopidogrel Bisulfate (Clopidogrel), 75 MG PO QHS, (Reported) Ferrous Gluconate (Ferrous Gluconate), 324 MG PO TID, (Reported) Folic Acid (Folic Acid), 1 TAB PO DAILY, (Reported) Furosemide (Furosemide), 40 MG PO BID, (Reported) Metoprolol Succinate (Metoprolol Succinate), 12.5 MG PO BID Multivitamin (Multivitamins), 1 CAP PO DAILY, (Reported) Potassium Chloride (Klor-Con M20), 1 TAB PO DAILY, (Reported) Pramipexole Dihydrochloride (Pramipexole Dihydrochlori), 0.5 MG PO TID, (Reported) Sennosides/Docusate Sodium (Senna-S Tablet), 1 TAB PO BID, (Reported) Sertraline Hcl (Zoloft), 75 MG PO DAILY, (Reported) Spironolactone (Spironolactone), 1 TAB PO DAILY, (Reported) Tamsulosin HCl (Flomax), 0.4 MG PO QPM, (Reported) Warfarin Sodium (Coumadin), 5 MG PO DAILY, (Reported) Scheduled PRN Acetaminophen (Acetaminophen), 650 MG PO Q4H PRN for PAIN, (Reported) Acetaminophen with Codeine (Tylenol with Codeine #3 Tablet), 1 TAB PO Q6HP PRN for pain Bisacodyl (Bisacodyl), 10 MG VA DAILY PRN for CONSTIPATION, (Reported) Milk Of Magnesia (Milk of Magnesia), 30 ML PO DAILY PRN for CONSTIPATION, (Reported) Nitroglycerin (Nitrostat), 0.4 MG SL Q5MP PRN for CHEST PAIN, (Reported) Oxycodone HCl (Oxycodone HCl), 5 MG PO Q4H PRN for PAIN, (Reported) Sodium Phosphate,[place]-Dibasic (Enema Iqdij-Va-Nmv), 1 ERNESTINA VA DAILY PRN for CONSTIPATION, (Reported) Current BP 126/80 Med Change: No Intervention Resistance Training: Yes Education: Self pulse (SEE EDUCATION ON PRIOR ITP'S) Education Goals Met: No (SLOWLY PROGRESSING/POOR ATTENDENCE) Target Goals Individual exercise Rx (1) BP 140/90 or 130/80 if DM or CKD (1) Aerobic active 30+min 5 days per week (1) Nutrition Date: Sep 29, 2019 Assessment: Followup/Discharge Stages of change: Preperation Lipid- med/supplement ATORVASTATIN Med Change: No Diabetes Diabetes: No Weight Management Weight (lbs): 236 Special Diet: low salt, low-fat Vitamin/Supplements: Multivitamin Current Weight (pounds): 236 Intervention Supervisory Training Specialist Consult: No Nurse/patient discussion: Yes Dietary Goals TO EAT HEART HEALTHY DIET/SMALLER PORTIONS Referral to Diabetes education: No Referral to lipid clinic: No Referral to weight mangement p: No Education Eating Healthy Education Goals Met: No (SLOW PROGRESS/POOR ATTENDENCE) Target goal LDL-C<100 if triglycerides are >200 Non-HDL-C should be <130 (1) LDL-C<70 for high risk patients (4) HbA1c<7% (1) BMI<25 Waist cir<40in M/<35in F (1) Education Date: Sep 29, 2019 Assessment: Followup/Discharge Learning Barriers: ready Stages of change: Preperation Family Support: Yes Tobacco use: No Tobacco Use Smokeless tobacco: No Intervention Referral to smoking cessation: No Individual education and couns: No Tobacco Adjunct: No Education class schedule given: No Attended education classes: No Education: tobacco triggers (SEE EDUCATION ON PRIOR ITP'S) Education Goals Met: No (SLOWLY PROGRESSING/POOR ATTENDENCE) Target Goals Complete cessation of tobacco use (1). Psychosocial Date: Sep 29, 2019 Assessment: Followup/Discharge Stages of change: Preperation Intervention Physician Consult: No Physician Referral: No Med Change: No Stress Management Class: No Uses Stress Management Skills: Yes Education Education: Coping Techniques (SEE EDUCATION ON PRIOR ITP'S) Education Goals Met: No (PATIENT RECEPTIVE TO EDUCATION AND EXERCISE,PROGRESSING SLOWLY, HAS HAD POOR ATTENDENCE IN PROGRAM) Target Goal Assess presence or absence of depression using a valid screening tool (1). Maximize coping skills (2). Positive support system (2). Patient/Program Goal Preventative Medication: Yes Beta blockade, Yes Statin/OTR lipid Lowering, Yes Other (WARFARIN) Fall Risk Assess: Yes (PT IS A FALL RISK) Assisstive Device: cane Provider Assessment Session Number: [id number] Tyler Vila RN Sep 29, 2019 16:52
== END 2019-10-24 ==
LOC: M CR 13:26
PROVIDERS: ATTEND Internal Medicine Cardiovascular Disease
DX: Z95.1 Presence of aortocoronary bypass graft (principal); Z95.2 Presence of prosthetic heart valve

== ENCOUNTER → 2020-12-15 | Outpatient (CLI) | payer MEDICARE ==
[~2020-12-15] MED LIST changes: +ASPI-569 PO; +ASPI81TA26 PO; -ASPI81TAEC PO; +CARB25TA9 PO; -FOLI400T PO; +FOLI400T13 PO
== END ==
LOC: M LABSMTC 12:38
PROVIDERS: ATTEND Anesthesiology
DX: Z01.812 Encounter for preprocedural laboratory examination (principal)

== ENCOUNTER 2020-12-20 06:36 | Day surgery (SDC) | payer MEDICARE ==
[~2020-12-20] VITALS: Ht 180.3 cm; Wt 112.4 kg
[~2020-12-20 06:36] MED LIST changes: +LIDOCAINE 1% MDV 20ML VIAL SQ PRN
[2020-12-20] MEDS ORDERED: DUOVISC (0.50ML VISCOAT/0.55ML PROVISC) OPHTH KIT As Ordered ONE (06:40)
[2020-12-20] MEDS ORDERED: BALANCED SALT IRRIGATION SOLUTION 500ML BAG (FOR OR EYE MACHINE) As Ordered ONE (06:40)
[2020-12-20] MEDS ORDERED: CEFUROXIME 1MG/0.1ML INTRACAMERAL INJ As Ordered ONE (06:40)
[2020-12-20] MEDS ORDERED: POVIDONE-IODINE 5% OPHTH PREP SOL 30ML As Ordered ONE (06:40)
[2020-12-20] MEDS ORDERED: PHENYLEPHRINE 2.5% OPHTH SOL 2ML OS ONE (07:00)
[2020-12-20] MEDS ORDERED: PROPARACAINE 0.5% OPHTH SOL 15ML OS ONE (07:00)
[2020-12-20] MEDS ORDERED: TROPICAMIDE 1% OPHTH SOLN 2ML OS ONE (07:00)
[2020-12-20] MEDS ORDERED: OFLOXACIN 0.3 % (OCUFLOX) OPTH SOL 5ML OS ONE (07:00)
[2020-12-20] MEDS ORDERED: BSS IRR 500ML/OMIDRIA 4ML IRR BAG (OR ONLY) As Ordered ONE (07:36)
[2020-12-20] MEDS ORDERED: MIDAZOLAM INJ 2MG/2ML VIAL (J2250 PER 1MG) As Ordered ONE (07:45)
[2020-12-20] MEDS ORDERED: fentaNYL 100 MCG/2 ML INJECTION (J3010) As Ordered ONE (07:45)
[2020-12-20 08:20] VITALS: BP 119/58
--- NOTE | 2020-12-21 11:14 | RO ---
OPERATIVE NOTE DATE OF OPERATION: 12/20/2020 PREOPERATIVE DIAGNOSIS: 1. Visually significant nuclear sclerotic cataract, left eye. POSTOPERATIVE DIAGNOSIS: 1. Visually significant nuclear sclerotic cataract, left eye. PROCEDURE: 1. Cataract extraction with use of phacoemulsification, and placement of intraocular lens, AU00T0, 20.5 D, left eye. SURGEON: John Feliciano DO TELEMARKETER: ANESTHESIA: Local (Omidria) with MAC. COMPLICATIONS: None POSTOPERATIVE CONDITION: Stable INDICATIONS FOR SURGERY: 1. Blurred vision affecting patient's activities of daily living. DESCRIPTION OF PROCEDURE: The patient was seen in the preoperative area and properly identified. The correct operative eye was identified and marked. The patient received topical anesthetic, antibiotics, and topical dilating drops. The patient was then transferred to the operating room. The correct side was re-identified and a time out was performed. The eye was prepped and draped in a sterile fashion. The eyelids were isolated with Tegaderm tape and the lids were held open with an adjustable speculum. A 1.0 mm paracentesis incision was made. Omidria was then injected into the anterior chamber. Viscoelastic was then injected into the anterior chamber through the paracentesis. Using a 2.4 mm sharp-tipped keratome, the anterior chamber was entered via a temporal clear cornea incision. A continuous curvilinear capsulorrhexis was created with Utrata forceps. Hydrodissection was performed with BSS on a blunt cannula until the nucleus was able to rotate freely. The crystalline lens was phacoemulsified and aspirated. Irrigation/aspiration was used to remove the cortical material Cohesive viscoelastic was placed into the capsular bag to deepen it. The implant was placed into the capsular bag and allowed to unfold. Placement was confirmed by visualizing the anterior capsulorrhexis. Irrigation/aspiration was used to remove the viscoelastic. The clear corneal incision was hydrated with BSS on a blunt cannula. The lens was well positioned. Intracameral antibiotic was injected into the anterior chamber. The incisions were then tested for leaks and found to be negative. The eye was then palpated for appropriate pressure and adjusted accordingly with BSS. The eyelid speculum was then carefully removed. A shield was placed over the eye. The patient tolerated the procedure well and was discharge to the recovery unit in a stable condition.
== END 2020-12-20 08:27 | disposition home or self-care (01) ==
LOC: M SDC 06:36
PROVIDERS: ATTEND Ophthalmology
DX: H25.12 Age-related nuclear cataract, left eye (principal); I10 Essential (primary) hypertension; E78.5 Hyperlipidemia, unspecified; Z98.61 Coronary angioplasty status; Z95.0 Presence of cardiac pacemaker; Z79.01 Long term (current) use of anticoagulants; Z79.82 Long term (current) use of aspirin; Z79.899 Other long term (current) drug therapy
CPT/HCPCS: 66984; J1097; J2250; J3010; V2632

== ENCOUNTER → 2020-12-29 | Outpatient (CLI) | payer MEDICARE ==
[~2020-12-29] MED LIST changes: -LIDOCAINE 1% MDV 20ML VIAL SQ PRN
== END ==
LOC: M LABSMTC 09:37
PROVIDERS: ATTEND Anesthesiology
DX: Z01.812 Encounter for preprocedural laboratory examination (principal)

== ENCOUNTER 2021-01-03 06:02 | Day surgery (SDC) | payer MEDICARE ==
[~2021-01-03] VITALS: Ht 180.3 cm; Wt 112.9 kg
[2021-01-03] MEDS ORDERED: POVIDONE-IODINE 5% OPHTH PREP SOL 30ML As Ordered ONE (06:42)
[2021-01-03] MEDS ORDERED: CEFUROXIME 1MG/0.1ML INTRACAMERAL INJ As Ordered ONE (06:43)
[2021-01-03] MEDS ORDERED: DUOVISC (0.50ML VISCOAT/0.55ML PROVISC) OPHTH KIT As Ordered ONE (06:43)
[2021-01-03] MEDS ORDERED: TROPICAMIDE 1% OPHTH SOLN 2ML OD ONE (07:00)
[2021-01-03] MEDS ORDERED: PHENYLEPHRINE 2.5% OPHTH SOL 2ML OD ONE (07:00)
[2021-01-03] MEDS ORDERED: PROPARACAINE 0.5% OPHTH SOL 15ML OD ONE (07:00)
[2021-01-03] MEDS ORDERED: OFLOXACIN 0.3 % (OCUFLOX) OPTH SOL 5ML OD ONE (07:00)
[2021-01-03] MEDS ORDERED: BSS IRR 500ML/OMIDRIA 4ML IRR BAG (OR ONLY) As Ordered ONE (07:20)
[2021-01-03] MEDS ORDERED: MIDAZOLAM INJ 2MG/2ML VIAL (J2250 PER 1MG) As Ordered ONE (07:38)
[2021-01-03 08:10] VITALS: BP 119/63
[2021-01-03] MEDS ORDERED: fentaNYL 100 MCG/2 ML INJECTION (J3010) As Ordered ONE (08:38)
--- NOTE | 2021-01-04 09:04 | RO ---
OPERATIVE NOTE DATE OF OPERATION: 01/03/2021 PREOPERATIVE DIAGNOSIS: 1. Visually significant nuclear sclerotic cataract, right eye. POSTOPERATIVE DIAGNOSIS: 1. Visually significant nuclear sclerotic cataract, right eye. PROCEDURE: 1. Cataract extraction with use of phacoemulsification, and placement of intraocular lens, AU00T0, 20.0 D, right eye. SURGEON: John Feliciano DO ANESTHESIA: Local (Omidria with MAC) COMPLICATIONS: None POSTOPERATIVE CONDITION: Stable INDICATIONS FOR SURGERY: 1. Blurred vision affecting patient's activities of daily living. DESCRIPTION OF PROCEDURE: The patient was seen in the preoperative area and properly identified. The correct operative eye was identified and marked. The patient received topical anesthetic, antibiotics, and topical dilating drops. The patient was then transferred to the operating room. The correct side was re-identified and a time-out was performed. The eye was prepped and draped in a sterile fashion. The eyelids were isolated with Tegaderm tape and the lids were held open with an adjustable speculum. A 1.0mm paracentesis incision was made. Omidria was then injected into the anterior chamber. Viscoelastic was then injected into the anterior chamber through the paracentesis. Using a 2.4mm sharp-tipped keratome, the anterior chamber was entered via a temporal clear cornea incision. A continuous curvilinear capsulorrhexis was created with Utrata forceps. Hydrodissection was performed with BSS on a blunt cannula until the nucleus was able to rotate freely. The crystalline lens was phacoemulsified and aspirated. Irrigation/aspiration was used to remove the cortical material Cohesive viscoelastic was placed into the capsular bag to deepen it. The implant was placed into the capsular bag and allowed to unfold. Placement was confirmed by visualizing the anterior capsulorrhexis. Irrigation/aspiration was used to remove the viscoelastic. The clear corneal incision was hydrated with BSS on a blunt cannula. The lens was well positioned. Intracameral antibiotic was injected into the anterior chamber. The incisions were then tested for leaks and found to be negative. The eye was then palpated for appropriate pressure and adjusted accordingly with BSS. The eyelid speculum was then carefully removed. A shield was placed over the eye. The patient tolerated the procedure well and was discharge to the recovery unit in a stable condition.
== END 2021-01-03 08:30 | disposition home or self-care (01) ==
LOC: M SDC 06:02
PROVIDERS: ATTEND Ophthalmology
DX: H25.11 Age-related nuclear cataract, right eye (principal); I10 Essential (primary) hypertension; E78.5 Hyperlipidemia, unspecified; Z98.61 Coronary angioplasty status; Z95.0 Presence of cardiac pacemaker; Z79.01 Long term (current) use of anticoagulants; Z79.82 Long term (current) use of aspirin; Z79.899 Other long term (current) drug therapy
CPT/HCPCS: 66984; J1097; J2250; J3010; V2632

== ENCOUNTER → 2021-02-11 | Outpatient (CLI) | payer MEDICARE ==
[2021-02-11 12:39] LABS: HEMOGLOBIN 11.8 g/dl (13.5-17.5); MEAN CORPUSCULAR HEMOGLOBIN 28.5 pg (27.0-33.0); MEAN CORPUSCULAR HGB CONC 30.3 g/dl (32.0-36.5); MEAN CORPUSCULAR VOLUME 94.2 fl (80.0-96.0); PLATELET COUNT, AUTOMATED 232 10^3/uL (150-450); RED BLOOD COUNT 4.14 10^6/uL (4.30-6.10); WHITE BLOOD COUNT 8.3 10^3/uL (4.0-10.0)
[2021-02-11 13:15] LABS: CREATININE FOR GFR 1.26 MG/DL (0.70-1.30); GLOMERULAR FILTRATION RATE 58.8 (>42); PERCENT SATURATION 16.2 % (19.7-50.0); POTASSIUM SERUM 4.1 MEQ/L (3.5-5.1)
== END ==
LOC: M PLALAB 10:03
PROVIDERS: ATTEND Nurse Practitioner Family
DX: D50.0 Iron deficiency anemia secondary to blood loss (chronic) (principal)

== ENCOUNTER 2021-04-03 13:42 | Emergency (ER) | payer MEDICARE ==
[~2021-04-03] VITALS: Ht 177.8 cm; Wt 109.1 kg
[~2021-04-03 13:42] MED LIST changes: +OMEP40CA4 PO; -OMEP40CA97 PO
[2021-04-03] MEDS ORDERED: AMAN100T (14:18)
--- NOTE | 2021-04-03 14:19 | REP ---
INDICATION: fall on coumadin COMPARISON: None. TECHNIQUE: Axial noncontrast images from the skull base to the thoracic inlet with coronal reformations. This CT examination was performed using the following dose reduction techniques: Automated exposure control, adjustment of mA and/or kv according to the patient's size, and use of iterative reconstruction technique. FINDINGS: Atrophy with periventricular leukomalacia and microvascular ischemic changes are appreciated. The ventricles and sulci are symmetric. Glass-white differentiation is maintained. There is no evidence for acute intracranial hemorrhage, mass/mass effect, pathology or infarction. No extra-axial fluid collection. Calvarium is intact. Paranasal sinuses and mastoid air cells are clear. IMPRESSION: Atrophy and microvascular ischemic changes. No acute intracranial hemorrhage, infarction, or mass/mass effect. <Electronically signed by Israel Hough > 04/03/21 [id number]
--- NOTE | 2021-04-03 14:20 | REP ---
INDICATION: fall on coumadin COMPARISON: None. TECHNIQUE: Axial noncontrast images through the facial bones to include the mandible with coronal and sagittal re-formations. FINDINGS: The osseous structures are intact and there is no evidence for fracture or dislocation. Specifically, the bilateral zygomatic arches, nasal bones, and mandible including bilateral temporomandibular joints appear normal and symmetric. The sinuses and mastoid air cells are all well aerated and clear without fluid level to suggest occult trauma. The bilateral orbits including the globes and intraconal contents appear symmetric and normal. The surrounding soft tissues are grossly unremarkable. IMPRESSION: Normal maxillofacial CT. No evidence for acute pathology or trauma/injury. <Electronically signed by Israel Hough > 04/03/21 [id number]
--- NOTE | 2021-04-03 14:23 | REP ---
INDICATION: fall on coumadin COMPARISON: None. TECHNIQUE: Axial noncontrast images from the skull base to the thoracic inlet with coronal and sagittal re-formations This CT examination was performed using the following dose reduction techniques: Automated exposure control, adjustment of mA and/or kv according to the patient's size, and use of iterative reconstruction technique. FINDINGS: Advanced multilevel degenerative spondylosis includes age-related osteopenia, osteophytosis, endplate sclerosis/heterogeneity with scattered cystic changes, joint space narrowing, and facet hypertrophy. No acute fracture/compression injury or subluxation. Paravertebral soft tissues are within normal limits. IMPRESSION: Osteopenia and advanced multilevel degenerative spondylosis. No acute fracture/compression injury or subluxation. <Electronically signed by Israel Hough > 04/03/21 [id number]
[2021-04-03 14:33] LABS: VENOUS BASE EXCESS 6.8 (-2.0-2.0); VENOUS HCO3 32.4 MEQ/L (23.0-27.0); VENOUS O2 SATURATION 58.8 % (60.0-80.0); VENOUS PARTIAL PRESSURE CO2 50.4 mmHg (38.0-50.0); VENOUS PARTIAL PRESSURE O2 30.7 mmHg (30.0-50.0); VENOUS PH 7.426 UNITS (7.330-7.430); VENOUS STANDARD HCO3 29.7 MEQ/L; VENOUS TOTAL CO2 33.9 MEQ/L (24.0-28.0)
[2021-04-03 14:46] LABS: BASO # 0.1 10^3/uL (0.0-0.2); BASO % 0.6 % (0.0-1.0); EOS # 0.1 10^3/uL (0.0-0.5); EOS % 1.6 % (0.0-3.0); HEMATOCRIT 37.9 % (42.0-52.0); LYMPH # 1.2 10^3/uL (1.5-5.0); LYMPH % 13.5 % (24.0-44.0); MEAN CORPUSCULAR HEMOGLOBIN 29.2 pg (27.0-33.0); MEAN CORPUSCULAR HGB CONC 31.7 g/dl (32.0-36.5); MEAN CORPUSCULAR VOLUME 92.2 fl (80.0-96.0); MONO # 0.8 10^3/uL (0.0-0.8); MONO % 8.6 % (2.0-8.0); NEUTROPHILS # 6.6 10^3/uL (1.5-8.5); NEUTROPHILS % 75.5 % (36.0-66.0); PLATELET COUNT, AUTOMATED 246 10^3/uL (150-450); RED BLOOD COUNT 4.11 10^6/uL (4.30-6.10); WHITE BLOOD COUNT 8.8 10^3/uL (4.0-10.0)
--- NOTE | 2021-04-03 15:05 | REP ---
INDICATION: Syncope/near-syncope COMPARISON: 04/09/2019 TECHNIQUE: Portable AP view of the chest FINDINGS: The mediastinum and cardiac silhouette are stable and within normal limits for portable technique. The lung ku are clear without acute consolidation, effusion, or pneumothorax. Skeletal structures are intact. IMPRESSION: No acute cardiopulmonary process appreciated. <Electronically signed by Israel Hough > 04/03/21 [id number]
[2021-04-03] MEDS ORDERED: NS 500 ML IV ONE (15:10)
[2021-04-03 15:19] LABS: BLOOD UREA NITROGEN 31 MG/DL (7-18); CARBON DIOXIDE LEVEL 33 MEQ/L (21-32); CHLORIDE LEVEL 97 MEQ/L (98-107); CK-MB VALUE MASS 3.3 NG/ML (<3.6); CPK CREATINE PHOSPHOKINASE 150 U/L (39-308); CREATININE FOR GFR 1.66 MG/DL (0.70-1.30); GLOMERULAR FILTRATION RATE 42.6 (>35); GLUCOSE, FASTING 89 MG/DL (70-100); MAGNESIUM LEVEL 3.2 MG/DL (1.8-2.4); POTASSIUM SERUM 4.7 MEQ/L (3.5-5.1); SODIUM LEVEL 135 MEQ/L (136-145); TROPONIN I < 0.02 NG/ML (< 0.10)
[2021-04-03] MEDS ORDERED: WALKER (17:13)
[2021-04-03 17:55] VITALS: BP 103/62
[2021-04-04] MEDS ORDERED: walker (13:18)
--- NOTE | 2021-04-04 21:16 | ECGEPIP ---
[facility] - ED Test Date: 2021-04-03 Pat Name: LEI WALKER Department: Room: - Gender: Male [employer] Operator: JUAREZ : [id number] Requested By: Yen Ruffin Order Number: [id number] Reading MD: Yen Ruffin Measurements Intervals [place] Rate: 60 P: CT: 266 QRS: 8 QRSD: 88 T: 17 QT: 430 QTc: 430 Interpretive Statements Atrial-paced rhythm with prolonged AV conduction Nonspecific ST and T wave abnormality 07/11/18 not paced Electronically Signed on 04-04-2021 21:16:08 EDT by Yen Ruffin
== END 2021-04-03 17:55 | disposition home or self-care (01) ==
LOC: M ED 13:42
DX: S00.83XA Contusion of other part of head, initial encounter (principal); S30.1XXA Contusion of abdominal wall, initial encounter; X58.XXXA Exposure to other specified factors, initial encounter; Y92.89 Other specified places as the place of occurrence of the external cause; I95.1 Orthostatic hypotension; I11.0 Hypertensive heart disease with heart failure; I50.9 Heart failure, unspecified; G20 Parkinson's disease; E78.5 Hyperlipidemia, unspecified; Z95.5 Presence of coronary angioplasty implant and graft; Z79.899 Other long term (current) drug therapy; Z79.82 Long term (current) use of aspirin; Z79.01 Long term (current) use of anticoagulants; Z87.891 Personal history of nicotine dependence

== ENCOUNTER 2021-04-07 09:54 | Emergency (ER) | payer MEDICARE ==
[~2021-04-07] VITALS: Ht 180.3 cm; Wt 109.1 kg
[~2021-04-07 09:54] MED LIST changes: +AMAN100T; +WALKER; +walker
[2021-04-07 12:59] LABS: BASO # 0.1 10^3/uL (0.0-0.2); BASO % 0.6 % (0.0-1.0); EOS # 0.1 10^3/uL (0.0-0.5); EOS % 1.4 % (0.0-3.0); HEMATOCRIT 40.9 % (42.0-52.0); LYMPH # 1.2 10^3/uL (1.5-5.0); LYMPH % 13.6 % (24.0-44.0); MEAN CORPUSCULAR HEMOGLOBIN 29.5 pg (27.0-33.0); MEAN CORPUSCULAR HGB CONC 31.8 g/dl (32.0-36.5); MEAN CORPUSCULAR VOLUME 92.7 fl (80.0-96.0); MONO # 0.7 10^3/uL (0.0-0.8); MONO % 7.8 % (2.0-8.0); NEUTROPHILS # 6.5 10^3/uL (1.5-8.5); NEUTROPHILS % 76.2 % (36.0-66.0); PLATELET COUNT, AUTOMATED 268 10^3/uL (150-450); RED BLOOD COUNT 4.41 10^6/uL (4.30-6.10); WHITE BLOOD COUNT 8.6 10^3/uL (4.0-10.0)
[2021-04-07 13:09] LABS: INR 2.7; PROTHROMBIN TIME 29.3 SECONDS (12.5-14.3)
[2021-04-07 13:10] LABS: PARTIAL THROMBOPLASTIN TIME 39.2 SECONDS (24.2-38.5)
[2021-04-07 13:40] VITALS: BP 106/69
== END 2021-04-07 13:44 | disposition home or self-care (01) ==
LOC: M ED 09:54
DX: R04.0 Epistaxis (principal); I48.91 Unspecified atrial fibrillation; I25.10 Atherosclerotic heart disease of native coronary artery without angina pectoris; I50.9 Heart failure, unspecified; I10 Essential (primary) hypertension; G20 Parkinson's disease; Z95.0 Presence of cardiac pacemaker; Z95.1 Presence of aortocoronary bypass graft; Z79.82 Long term (current) use of aspirin; Z79.01 Long term (current) use of anticoagulants; Z79.899 Other long term (current) drug therapy

== ENCOUNTER → 2022-02-17 | Outpatient (REF) | payer MEDICARE ==
[~2022-02-17] MED LIST changes: -KLOR20TA42 PO; +POTA-141 PO
== END ==
LOC: M SFHCDERM 14:17
PROVIDERS: ATTEND Nurse Practitioner Family
DX: L82.1 Other seborrheic keratosis (principal)

== ENCOUNTER → 2022-03-07 | Outpatient (REF) | payer MEDICARE ==
[2022-03-07 17:22] LABS: PERCENT SATURATION 20.6 % (19.7-50.0)
== END ==
LOC: M LAB REF 16:13
PROVIDERS: ATTEND Internal Medicine
DX: D64.9 Anemia, unspecified (principal)

== ENCOUNTER → 2022-05-08 | Outpatient (CLI) | payer MEDICARE | LOC: M WUC 14:15 | PROVIDERS: ATTEND Internal Medicine | DX: R06.02 Shortness of breath (principal) ==

== ENCOUNTER → 2022-06-14 | Outpatient (CLI) | payer MEDICARE ==
[~2022-06-14] MED LIST changes: +BARIUM SULFATE 700 MG TABLET (E-Z-DISK) As Ordered ONE; +E-Z-PAQUE 96% w/w SUSP 176GM BTL As Ordered ONE; +VARIBAR NECTAR 40% w/v 240ML SUSP BTL As Ordered ONE; +VARIBAR PUDDING 40% w/v 230ML TUBE As Ordered ONE
== END ==
LOC: M RAD 10:32
PROVIDERS: ATTEND Internal Medicine
DX: R13.10 Dysphagia, unspecified (principal)

== ENCOUNTER 2022-07-11 11:31 | Emergency (ER) | payer MEDICARE ==
[~2022-07-11] VITALS: Ht 180.3 cm; Wt 111.4 kg
[~2022-07-11 11:31] MED LIST changes: -BARIUM SULFATE 700 MG TABLET (E-Z-DISK) As Ordered ONE; -E-Z-PAQUE 96% w/w SUSP 176GM BTL As Ordered ONE; -VARIBAR NECTAR 40% w/v 240ML SUSP BTL As Ordered ONE; -VARIBAR PUDDING 40% w/v 230ML TUBE As Ordered ONE
[2022-07-11 17:15] LABS: INR 2.16; PROTHROMBIN TIME 24.5 SECONDS (12.5-14.5)
[2022-07-11 17:56] VITALS: BP 135/78
== END 2022-07-11 17:57 | disposition home or self-care (01) ==
LOC: M ED 11:31
DX: S60.222A Contusion of left hand, initial encounter (principal); W22.8XXA Striking against or struck by other objects, initial encounter; Y92.002 Bathroom of unspecified non-institutional (private) residence as the place of occurrence of the external cause; I25.2 Old myocardial infarction; Z87.891 Personal history of nicotine dependence; Z95.0 Presence of cardiac pacemaker; Z79.01 Long term (current) use of anticoagulants; Z79.899 Other long term (current) drug therapy; Z79.82 Long term (current) use of aspirin

== ENCOUNTER → 2022-08-24 | Outpatient (CLI) | payer MEDICARE | LOC: M RAD 10:23 | PROVIDERS: ATTEND Internal Medicine Critical Care Medicine | DX: R06.02 Shortness of breath (principal) ==

== ENCOUNTER → 2022-10-23 | Outpatient (CLI) | payer MEDICARE ==
[2022-10-23 12:29] LABS: BLOOD UREA NITROGEN 34 MG/DL (9-23); CALCIUM LEVEL 9.4 MG/DL (8.3-10.6); CARBON DIOXIDE LEVEL 33 MMOL/L (20-31); CHLORIDE LEVEL 99 MMOL/L (98-107); CREATININE FOR GFR 1.16 MG/DL (0.70-1.30); GLOMERULAR FILTRATION RATE > 60.0 (>35); GLUCOSE, FASTING 96 MG/DL (74-106); POTASSIUM SERUM 4.8 MMOL/L (3.5-5.1); SODIUM LEVEL 137 MMOL/L (136-145)
== END ==
LOC: M LAB 11:34
PROVIDERS: ATTEND Internal Medicine Cardiovascular Disease
DX: I50.32 Chronic diastolic (congestive) heart failure (principal)

== ENCOUNTER → 2022-10-31 | Outpatient (CLI) | payer MEDICARE | LOC: M PLAIMG 12:17 | PROVIDERS: ATTEND Psychiatry & Neurology Neurology | DX: R47.81 Slurred speech (principal); I63.9 Cerebral infarction, unspecified; G20 Parkinson's disease ==

== ENCOUNTER → 2022-12-06 | Outpatient (REF) | payer MEDICARE ==
[2022-12-06 17:40] LABS: PERCENT SATURATION 18.5 % (19.7-50.0)
== END ==
LOC: M LAB REF 16:13
PROVIDERS: ATTEND Internal Medicine
DX: D50.9 Iron deficiency anemia, unspecified (principal)

== ENCOUNTER → 2023-04-10 | Outpatient (REF) | payer MEDICARE ==
[2023-04-10 18:34] LABS: PERCENT SATURATION 18.2 % (19.7-50.0)
== END ==
LOC: M LAB REF 17:03
PROVIDERS: ATTEND Internal Medicine
DX: D50.9 Iron deficiency anemia, unspecified (principal)

== ENCOUNTER → 2023-04-29 | Outpatient (CLI) | payer MEDICARE | LOC: M SLEEP 20:00 | PROVIDERS: ATTEND Internal Medicine Critical Care Medicine | DX: G47.30 Sleep apnea, unspecified (principal); G47.61 Periodic limb movement disorder ==

== ENCOUNTER → 2023-07-07 | Outpatient (CLI) | payer MEDICARE | LOC: M RAD 12:55 | PROVIDERS: ATTEND Student in an Organized Health Care Education/Training Program | DX: M54.50 Low back pain, unspecified (principal) ==

== ENCOUNTER → 2023-07-17 | Outpatient (CLI) | payer MEDICARE | LOC: M RAD 09:45 | PROVIDERS: ATTEND Internal Medicine | DX: M79.604 Pain in right leg (principal) ==

== ENCOUNTER → 2023-07-31 | Outpatient (CLI) | payer MEDICARE | LOC: M RAD 10:40 | PROVIDERS: ATTEND Orthopaedic Surgery | DX: M47.896 Other spondylosis, lumbar region (principal) | CPT/HCPCS: 78315; A9503 ==

== ENCOUNTER → 2024-01-07 | Outpatient (REF) | payer MEDICARE ==
[~2024-01-07] MED LIST changes: -SENN1TAB41 PO; +SENN1TAB85 PO
[2024-01-07 18:49] LABS: PERCENT SATURATION 23.7 % (19.7-50.0)
== END ==
LOC: M LAB REF 17:09
PROVIDERS: ATTEND Internal Medicine
DX: D50.9 Iron deficiency anemia, unspecified (principal)

== ENCOUNTER → 2024-03-05 | Outpatient (CLI) | payer MEDICARE ==
[~2024-03-05] MED LIST changes: +BARIUM SULFATE 700 MG TABLET (E-Z-DISK) As Ordered ONE; +E-Z-PAQUE 96% w/w SUSP 176GM BTL As Ordered ONE; +VARIBAR NECTAR 40% w/v 240ML SUSP BTL As Ordered ONE; +VARIBAR PUDDING 40% w/v 230ML TUBE As Ordered ONE
== END ==
LOC: M RAD 10:48
PROVIDERS: ATTEND Internal Medicine
DX: G20.A1 Parkinson's disease without dyskinesia, without mention of fluctuations (principal)

== ENCOUNTER → 2024-04-07 | Outpatient (CLI) | payer MEDICARE ==
[~2024-04-07] MED LIST changes: -BARIUM SULFATE 700 MG TABLET (E-Z-DISK) As Ordered ONE; -E-Z-PAQUE 96% w/w SUSP 176GM BTL As Ordered ONE; -VARIBAR NECTAR 40% w/v 240ML SUSP BTL As Ordered ONE; -VARIBAR PUDDING 40% w/v 230ML TUBE As Ordered ONE
== END ==
LOC: M WUC 10:17
PROVIDERS: ATTEND Student in an Organized Health Care Education/Training Program
DX: R05.9 Cough, unspecified (principal)

== ENCOUNTER → 2024-05-06 | Outpatient (CLI) | payer MEDICARE | LOC: M RAD 12:05 | PROVIDERS: ATTEND Internal Medicine Critical Care Medicine | DX: J45.20 Mild intermittent asthma, uncomplicated (principal) ==

== ENCOUNTER → 2024-05-27 | Outpatient (CLI) | payer MEDICARE | LOC: M SOG 08:26 | PROVIDERS: ATTEND Orthopaedic Surgery | DX: M79.641 Pain in right hand (principal); M25.531 Pain in right wrist ==

== ENCOUNTER → 2024-06-24 | Outpatient (REF) | payer MEDICARE | LOC: M LAB REF 17:44 | PROVIDERS: ATTEND Internal Medicine | DX: D50.9 Iron deficiency anemia, unspecified (principal) ==

== ENCOUNTER → 2024-12-04 | Outpatient (CLI) | payer MEDICARE ==
[~2024-12-04] VITALS: Ht 175.3 cm; Wt 102.8 kg
[~2024-12-04] MED LIST changes: +JARD1TAB PO; +MORP1SOL4 PO
[2024-12-04 08:41] VITALS: BP 128/60; O2SAT 96
== END ==
LOC: M PAL 08:19
PROVIDERS: ATTEND Physician Assistant
DX: I27.20 Pulmonary hypertension, unspecified (principal); G20.C Parkinsonism, unspecified; F01.50 Vascular dementia, unspecified severity, without behavioral disturbance, psychotic disturbance, mood disturbance, and anxiety; R06.02 Shortness of breath; Z66 Do not resuscitate; Z79.01 Long term (current) use of anticoagulants; Z95.1 Presence of aortocoronary bypass graft; Z95.0 Presence of cardiac pacemaker; Z95.2 Presence of prosthetic heart valve
CPT/HCPCS: G0463; G2212

== ENCOUNTER → 2024-12-29 | Outpatient (CLI) | payer MEDICARE ==
[~2024-12-29] VITALS: Ht 180.3 cm; Wt 103.0 kg
[2024-12-29 10:16] VITALS: BP 140/78; O2SAT 96
== END ==
LOC: M PAL 10:03
PROVIDERS: ATTEND Physician Assistant
DX: Z51.5 Encounter for palliative care (principal); Z66 Do not resuscitate; I27.23 Pulmonary hypertension due to lung diseases and hypoxia; R06.02 Shortness of breath; G20.C Parkinsonism, unspecified; F01.50 Vascular dementia, unspecified severity, without behavioral disturbance, psychotic disturbance, mood disturbance, and anxiety; Z95.2 Presence of prosthetic heart valve; Z95.0 Presence of cardiac pacemaker; Z79.01 Long term (current) use of anticoagulants; Z79.891 Long term (current) use of opiate analgesic; Z99.81 Dependence on supplemental oxygen; K59.09 Other constipation; Z79.899 Other long term (current) drug therapy; Z79.82 Long term (current) use of aspirin

== ENCOUNTER → 2025-02-02 | Outpatient (CLI) | payer MEDICARE ==
[~2025-02-02] VITALS: Ht 175.3 cm; Wt 101.4 kg
[~2025-02-02] MED LIST changes: -FLOM0.4C39 PO; +TAMS-18 PO
[2025-02-02 11:12] VITALS: BP 137/80; O2SAT 95
== END ==
LOC: M PAL 10:57
PROVIDERS: ATTEND Physician Assistant
DX: Z51.5 Encounter for palliative care (principal); Z66 Do not resuscitate; I27.23 Pulmonary hypertension due to lung diseases and hypoxia; G20.C Parkinsonism, unspecified; F01.50 Vascular dementia, unspecified severity, without behavioral disturbance, psychotic disturbance, mood disturbance, and anxiety; Z79.01 Long term (current) use of anticoagulants; Z95.2 Presence of prosthetic heart valve; Z95.0 Presence of cardiac pacemaker; R06.02 Shortness of breath; F32.A Depression, unspecified; Z79.891 Long term (current) use of opiate analgesic; Z79.82 Long term (current) use of aspirin; Z79.899 Other long term (current) drug therapy; Z99.89 Dependence on other enabling machines and devices

== ENCOUNTER → 2025-04-08 | Outpatient (REF) | payer MEDICARE ==
[~2025-04-08] MED LIST changes: +CELE10TA PO
[2025-04-08 14:49] LABS: IRON (FE) 46.0 UG/DL (65-175); PERCENT SATURATION 16.0 % (19.7-50.0)
== END ==
LOC: M LAB REF 14:21
PROVIDERS: ATTEND Internal Medicine
DX: D50.9 Iron deficiency anemia, unspecified (principal)

== ENCOUNTER → 2025-05-18 | Outpatient (CLI) | payer MEDICARE ==
[~2025-05-18] VITALS: Ht 180.3 cm; Wt 100.8 kg
[~2025-05-18] MED LIST changes: -ACE65ERTAB PO; +ACET-1593 PO; +SERT-141 PO
[2025-05-18 10:47] VITALS: BP 140/70; O2SAT 95
== END ==
LOC: M PAL 10:24
PROVIDERS: ATTEND Physician Assistant
DX: Z51.5 Encounter for palliative care (principal); Z66 Do not resuscitate; I27.20 Pulmonary hypertension, unspecified; G20.C Parkinsonism, unspecified; F01.50 Vascular dementia, unspecified severity, without behavioral disturbance, psychotic disturbance, mood disturbance, and anxiety; I25.810 Atherosclerosis of coronary artery bypass graft(s) without angina pectoris; Z95.2 Presence of prosthetic heart valve; Z79.01 Long term (current) use of anticoagulants; Z79.891 Long term (current) use of opiate analgesic; Z79.899 Other long term (current) drug therapy

== ENCOUNTER → 2025-07-21 | Outpatient (CLI) | payer MEDICARE ==
[~2025-07-21] VITALS: Ht 175.3 cm; Wt 99.5 kg
[2025-07-21 14:13] VITALS: BP 114/58; O2SAT 96
== END ==
LOC: M PAL 13:59
PROVIDERS: ATTEND Physician Assistant
DX: Z51.5 Encounter for palliative care (principal); Z66 Do not resuscitate; I27.20 Pulmonary hypertension, unspecified; G20.C Parkinsonism, unspecified; F01.50 Vascular dementia, unspecified severity, without behavioral disturbance, psychotic disturbance, mood disturbance, and anxiety; Z95.1 Presence of aortocoronary bypass graft; Z95.2 Presence of prosthetic heart valve; Z95.0 Presence of cardiac pacemaker; Z79.01 Long term (current) use of anticoagulants; Z79.891 Long term (current) use of opiate analgesic; Z79.899 Other long term (current) drug therapy; Z79.02 Long term (current) use of antithrombotics/antiplatelets; Z79.82 Long term (current) use of aspirin